=== PATIENT | female | born 1935 | race Caucasian/White ===

== ENCOUNTER 2016-09-12 19:41 | Inpatient (IN) | payer MEDICARE, MEDICAID ==
[2016-09-12] MEDS ORDERED: Sodium Chloride 0.9% 10 ML Syringe FLUSH PRN (20:24)
--- NOTE | 2016-09-12 20:39 | EDM.PDOC ---
ED HISTORY OF PRESENT ILLNESS - General Chief Complaint: Respiratory Problem Stated Complaint: COLD Time Seen by Provider: 09/12/16 20:25 Source: Reports: Patient, Family (Son) History Limitations: Reports: Respiratory distress - History of Present Illness INITIAL COMMENTS - FREE TEXT/NARRATIVE: Hypoxia: This is a 81-year-old female presents to emergency with her son and [id number], reports respiratory flu-like symptoms for the past 10 days. The past 2 days worsening oxygen saturations mid 80's. Today oxygen saturations in the 71 and low 70s with confusion. baseline oxygen sats 86 to 88 % on room air. She has been doing quite well for the past 2 years, last hospitalization 2 years ago, for respiratory illness . She does not have oxygen or nebulizers at home Timing/Duration: Reports: Week(s):, Getting worse Location, General: Reports: generalized Improves with: Reports: None Worsens with: Reports: None Context, General: Reports: Other (Respiratory illness x10 days) - Related Data Allergies/ADRs: Allergies Allergy/AdvReac Type Severity Reaction Status Date / Time No Known Allergies Allergy Verified 09/12/16 20:02 Home Meds: Home Meds Allopurinol 100 mg PO DAILY 06/06/13 [History] Aspirin [Christ Chewable Aspirin] 81 mg PO DAILY 06/06/13 [History] Clopidogrel Bisulfate [Clopidogrel] 75 mg PO DAILY 06/06/13 [History] Metoprolol Tartrate [Lopressor] 100 mg PO BID 06/06/13 [History] Triamcinolone Acetonide [Kenalog 0.1% Crm] 454 gm TOP ASDIRECTED PRN 06/06/13 [ History] atorvaSTATin Calcium [Atorvastatin Calcium] 10 mg PO BEDTIME 06/06/13 [History] glipiZIDE [Glipizide ER] 10 mg PO DAILY 06/06/13 [History] Famotidine 10 mg PO BEDTIME 01/15/15 [History] Insulin Glarg,Human.Rec.Analog [Lantus] 44 unit SUBCUT BEDTIME 01/15/15 [History ] Furosemide [Lasix] 40 mg PO DAILY #30 tablet 01/21/15 [Rx] Cholecalciferol (Vitamin D3) [Vitamin D3] 2,000 unit PO DAILY 09/12/16 [History] [place]-3 Fatty Acids [Fish Oil] 1,000 mg PO DAILY 09/12/16 [History] Past Medical History HEENT History: Reports: Impaired vision Cardiovascular History: Reports: High cholesterol, Hypertension Respiratory History: Reports: COPD Gastrointestinal History: Reports: Chronic constipation, GERD Genitourinary History: Reports: Acute renal failure 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: , Spontaneous Musculoskeletal History: Reports: Fracture Neurological History: Reports: CVA Endocrine/Metabolic History: Reports: Diabetes, type II Hematologic History: Reports: Blood transfusion(s) - Infectious Disease History Infectious Disease History: Reports: Chicken pox, Measles - Past Surgical History HEENT Surgical History: Reports: Cataract surgery Other Musculoskeletal Surgeries/Procedures:: fx hip with surgical repair Social & Family History - Tobacco Use Smoking Status *Q: Never Smoker Second Hand Smoke Exposure: No - Caffeine Use Caffeine Use: Reports: Soda - Alcohol Use Days Per Week of Alcohol Use: 0 - Recreational Drug Use Recreational Drug Use: No - Living Situation & Occupation Living situation: Reports: , with family Occupation: disabled (Lives with son Leonidas in [place], [place], 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.) ED ROS GENERAL - Review of Systems Review Of Systems: See Below Constitutional: Reports: fatigue, other (Low oxygen saturations for the past 2- 3 days worse today) HEENT: Reports: No symptoms Respiratory: Reports: shortness of breath, other (Low oxygen saturations) Cardiovascular: Reports: Dyspnea on exertion, Edema (Bilateral lower leg edema which is chronic) Endocrine: Reports: no symptoms GI/Abdominal: Reports: No symptoms : Reports: incontinence (Wears a diaper for incontinence of bowel and bladder) Musculoskeletal: Reports: no symptoms Skin: Reports: dryness (Bilateral lower legs) Neurological: Reports: tremors (Chronic), weakness, gait disturbance (Secondary to stroke x11-12 years ago. Walks with a walker.) Psychiatric: Reports: No symptoms Hematologic/Lymphatic: Reports: no symptoms Immunologic: Reports: no symptoms ED EXAM, GENERAL - Physical Exam Exam: See Below Exam Limited By: No limitations General Appearance: alert, WD/WN, mild distress, other (Appears to be frail and chronically ill. Very pale) Eye Exam: bilateral eye: PERRL Ears: normal external exam, other (Bilateral hearing aids) Nose: normal inspection, normal mucosa, no blood Throat/Mouth: Normal inspection, Normal lips, Normal teeth, Normal gums, Normal oropharynx, Normal voice, No airway compromise Head: atraumatic, normocephalic Neck: normal inspection, supple, non-tender, full range of motion Respiratory/Chest: no respiratory distress, decreased breath sounds, wheezing ( Upper lobe the bilateral) Cardiovascular: regular rate, rhythm Peripheral Pulses: 2+: radial (L), radial (R) GI/Abdominal: normal bowel sounds, soft, non tender, no organomegaly, no distention, no abnormal bruit, no mass (Female) Exam: Deferred Rectal (Female) Exam: Deferred Back Exam: normal inspection, full range of motion, other (Multiple large skin tags noted to back without signs of secondary infection) Extremities: pedal edema (Bilateral 2+), slow capillary refill (Due to the edema ) Neurological: alert, oriented, normal cognition Psychiatric: normal affect, normal mood Skin Exam: Warm, Dry, Intact, Normal color, No rash Lymphatic: no adenopathy Course - Vital Signs Last Recorded V/S: Last Vital Signs Temp 37.6 C 09/12/16 21:44 Pulse 68 09/12/16 21:44 Resp 20 09/12/16 21:44 BP 157/88 H 09/12/16 21:44 Pulse Ox 91 L 09/12/16 21:44 - Orders/Labs/Meds Orders: Active Orders 24 hr Category Date Time Status RT Aerosol Therapy [RC] ASDIRECTED Care 09/12/16 21:17 Active Chest 1V Frontal [CR] Urgent Exams 09/12/16 20:20 Taken CULTURE BLOOD [BC] Urgent Lab 09/12/16 20:25 Received CULTURE BLOOD [BC] Urgent Lab 09/12/16 20:35 Received UA W/MICROSCOPIC [URIN] Stat Lab 09/12/16 21:22 Uncollected Sodium Chloride 0.9% [Normal Saline] 1,000 ml Med 09/12/16 21:45 Active IV ASDIRECTED Sodium Chloride 0.9% [Saline Flush] Med 09/12/16 20:24 Active 10 ml FLUSH ASDIRECTED PRN Blood Culture x2 Reflex Set [OM.PC] Urgent Oth 09/12/16 20:20 Ordered Saline Lock Insert [OM.PC] Routine Oth 09/12/16 20:24 Ordered Medication Orders Sodium Chloride (Normal Saline) 1,000 mls @ 250 mls/hr IV ASDIRECTED SHLOMO Last Admin: 09/12/16 22:05 Dose: 250 mls/hr Sodium Chloride (Saline Flush) 10 ml FLUSH ASDIRECTED PRN PRN Reason: Keep Vein Open Last Admin: 09/12/16 21:26 Dose: 10 ml Labs: Laboratory Tests 09/12/16 09/12/16 09/12/16 Range/Units 20:25 20:25 20:25 WBC 10.6 (4.5-11.0) K/uL RBC 5.11 (3.30-5.50) M/uL Hgb 13.9 (12.0-15.0) g/dL Hct 47.5 (36.0-48.0) % MCV 93 (80-98) fL MCH 27 (27-31) pg MCHC 29 L (32-36) % Plt Count 220 (150-400) K/uL Neut % (Auto) 73 H (36-66) % Lymph % (Auto) 17 L (24-44) % [place] % (Auto) 8 H (2-6) % Eos % (Auto) 3 (2-4) % Baso % (Auto) 0 (0-1) % Puncture Site ABG pH (7.350-7.450) ABG pCO2 (35.0-42.0) mmHg ABG pO2 (75.0-100.0) mmHg ABG HCO3 (22.0-26.0) mmol/L ABG Total CO2 (21.0-25.0) mmol/L ABG O2 Saturation (95.0-98.0) % ABG O2 Content (15.0-23.0) %vol ABG Base Excess mm/L ABG Hemoglobin (12.0-16.0) g/dL ABG Oxyhemoglobin % ABG Carboxyhemoglobin (0.0-1.6) % ABG Methemoglobin % Sincere Test O2 Delivery Device Oxygen Flow Rate L Sodium 141 (140-148) mmol/L Potassium 4.1 (3.6-5.2) mmol/L Chloride 98 L (100-108) mmol/L Carbon Dioxide 40 H (21-32) mmol/L Anion Gap 7.1 (5.0-14.0) mmol/L BUN 46 H (7-18) mg/dL Creatinine 2.5 H D (0.6-1.0) mg/dL Est Cr Clr Drug Dosing 17.08 mL/min Estimated GFR (MDRD) 19 L (>60) Glucose 252 H (74-106) mg/dL Lactic Acid 1.8 (0.4-2.0) mmol/L Calcium 8.3 L (8.5-10.1) mg/dL Total Bilirubin 0.8 (0.2-1.0) mg/dL AST 11 L (15-37) U/L ALT 12 (12-78) U/L Alkaline Phosphatase 73 (46-116) U/L Aqk-[id number]-Lncuhymywnp Pept 364 (5-450) pg/mL Total Protein 7.3 (6.4-8.2) g/dL Albumin 2.9 L (3.4-5.0) g/dL Globulin 4.4 H (2.3-3.5) g/dL Albumin/Globulin Ratio 0.7 L (1.2-2.2) Amylase 58 (25-115) U/L Lipase 183 (73-393) U/L 09/12/16 Range/Units 20:42 WBC (4.5-11.0) K/uL RBC (3.30-5.50) M/uL Hgb (12.0-15.0) g/dL Hct (36.0-48.0) % MCV (80-98) fL MCH (27-31) pg MCHC (32-36) % Plt Count (150-400) K/uL Neut % (Auto) (36-66) % Lymph % (Auto) (24-44) % [place] % (Auto) (2-6) % Eos % (Auto) (2-4) % Baso % (Auto) (0-1) % Puncture Site Rt radial ABG pH 7.401 (7.350-7.450) ABG pCO2 62.7 H (35.0-42.0) mmHg ABG pO2 59.0 L (75.0-100.0) mmHg ABG HCO3 38.1 H (22.0-26.0) mmol/L ABG Total CO2 33.8 H (21.0-25.0) mmol/L ABG O2 Saturation 88.3 L (95.0-98.0) % ABG O2 Content 16.5 (15.0-23.0) %vol ABG Base Excess 11.0 mm/L ABG Hemoglobin 13.6 (12.0-16.0) g/dL ABG Oxyhemoglobin 86.2 % ABG Carboxyhemoglobin 1.7 H (0.0-1.6) % ABG Methemoglobin 0.7 % Sincere Test Pass O2 Delivery Device Nasal cannula Oxygen Flow Rate 3 L Sodium (140-148) mmol/L Potassium (3.6-5.2) mmol/L Chloride (100-108) mmol/L Carbon Dioxide (21-32) mmol/L Anion Gap (5.0-14.0) mmol/L BUN (7-18) mg/dL Creatinine (0.6-1.0) mg/dL Est Cr Clr Drug Dosing mL/min Estimated GFR (MDRD) (>60) Glucose (74-106) mg/dL Lactic Acid (0.4-2.0) mmol/L Calcium (8.5-10.1) mg/dL Total Bilirubin (0.2-1.0) mg/dL AST (15-37) U/L ALT (12-78) U/L Alkaline Phosphatase (46-116) U/L Mym-O-Gizuhcmriyw Pept (5-450) pg/mL Total Protein (6.4-8.2) g/dL Albumin (3.4-5.0) g/dL Globulin (2.3-3.5) g/dL Albumin/Globulin Ratio (1.2-2.2) Amylase (25-115) U/L Lipase (73-393) U/L Meds: Medications Generic Name Dose Route Start Last Admin Trade Name Freq PRN Reason Stop Dose Admin Sodium Chloride 1,000 mls @ 250 mls/hr 09/12/16 21:45 09/12/16 22:05 Normal Saline IV 250 mls/hr ASDIRECTED SHLOMO Administration Sodium Chloride 10 ml 09/12/16 20:24 09/12/16 21:26 Saline Flush FLUSH 10 ml ASDIRECTED PRN Administration Keep Vein Open Discontinued Medications Generic Name Dose Route Start Last Admin Trade Name Freq PRN Reason Stop Dose Admin Albuterol/Ipratropium 3 ml 09/12/16 21:17 09/12/16 21:32 Duoneb 3.0-0.5 Mg/3 Ml NEB 09/12/16 21:18 3 ml ONETIME ONE Administration Methylprednisolone Sodium Succinate 125 mg 09/12/16 22:00 09/12/16 22:06 Solu-Medrol IVPUSH 09/12/16 22:01 125 mg ONETIME ONE Administration - Re-Assessments/Exams Free Text/Narrative Re-Assessment/Exam: 09/12/16 22:40 While in emergency room; labs completed, blood cultures pending. Imaging: Chest x-ray shows cardiomegaly, no infiltrates noted on wet read, radiology report pending consult with internal medicine hospitalists -Given normal saline 1 L over 4 hours -Give Solu-Medrol 125 IV now and then reduce to 40 mg IV every 6 hours -Oxygen to keep sats 93% -Sliding scale coverage medium dose We'll plan to admit to inpatient unit for further care and evaluation Departure - Departure Time of Disposition: 22:45 Disposition: Admitted As Inpatient 68 Condition: good Clinical Impression: COPD exacerbation, Hypoxemia, Diabetes mellitus type 2 in obese, History of stroke - My Orders Last 24 Hours: My Active Orders 09/12/16 20:20 Chest 1V Frontal [CR] Urgent Blood Culture x2 Reflex Set [OM.PC] Urgent 09/12/16 20:24 Sodium Chloride 0.9% [Saline Flush] 10 ml FLUSH ASDIRECTED PRN Saline Lock Insert [OM.PC] Routine 09/12/16 20:25 CULTURE BLOOD [BC] Urgent 09/12/16 20:35 CULTURE BLOOD [BC] Urgent 09/12/16 21:17 RT Aerosol Therapy [RC] ASDIRECTED 09/12/16 21:22 UA W/MICROSCOPIC [URIN] Stat 09/12/16 21:45 Sodium Chloride 0.9% [Normal Saline] 1,000 ml IV ASDIRECTED - Assessment/Plan Last 24 Hours: My Active Orders 09/12/16 20:20 Chest 1V Frontal [CR] Urgent Blood Culture x2 Reflex Set [OM.PC] Urgent 09/12/16 20:24 Sodium Chloride 0.9% [Saline Flush] 10 ml FLUSH ASDIRECTED PRN Saline Lock Insert [OM.PC] Routine 09/12/16 20:25 CULTURE BLOOD [BC] Urgent 09/12/16 20:35 CULTURE BLOOD [BC] Urgent 09/12/16 21:17 RT Aerosol Therapy [RC] ASDIRECTED 09/12/16 21:22 UA W/MICROSCOPIC [URIN] Stat 09/12/16 21:45 Sodium Chloride 0.9% [Normal Saline] 1,000 ml IV ASDIRECTED
[2016-09-12] MEDS ORDERED: Albuterol/Ipratropium 3.0-0.5 MG/3 ML Neb Soln NEB ONE (21:17)
[2016-09-12] MEDS ORDERED: Sodium Chloride 0.9% 1,000 ML IV SCH (21:45)
[2016-09-12] MEDS ORDERED: methylPREDNISolone Sodium Succinate 125 MG/2 ML SDV IVPUSH ONE (22:00)
[2016-09-12] MEDS ORDERED: Docusate Sodium 100 MG Cap PO PRN (22:57)
[2016-09-12] MEDS ORDERED: Ondansetron 4 MG Tab.DIS PO PRN (22:57)
[2016-09-12] MEDS ORDERED: Acetaminophen 325 MG Tab PO PRN (22:57)
[2016-09-12] MEDS ORDERED: Albuterol 0.083% 2.5 MG/3 ML Neb Soln NEB PRN (22:57)
[2016-09-12] MEDS ORDERED: LORazepam 2 MG/ML MDV IV PRN (22:57)
[2016-09-12] MEDS ORDERED: Albuterol/Ipratropium 3.0-0.5 MG/3 ML Neb Soln NEB SCH (22:57)
[2016-09-12] MEDS ORDERED: oxyCODONE 5 MG Tab PO PRN (22:57)
[2016-09-12] MEDS ORDERED: Zolpidem 5 MG Tab PO PRN (22:57)
[2016-09-12] MEDS ORDERED: Bisacodyl 5 MG Tab PO PRN (22:57)
[2016-09-12] MEDS ORDERED: Morphine 2 MG/ML Syringe IVPUSH PRN (22:57)
--- NOTE | 2016-09-12 23:05 | PCM.HP ---
H&P History of Present Illness - General Date of Service: 09/12/16 Admit Problem/Dx: Admission Diagnosis/Problem Admission Diagnosis/Problem COPD, Moderate chronic obstructive pulmonary disease Source of Information: Patient, Family (Son Leonidas) History Limitations: Reports: No limitations - History of Present Illness Initial Comments - Free Text/Narative: - History of Present Illness INITIAL COMMENTS - FREE TEXT/NARRATIVE: Hypoxia: This is a 81-year-old female presents to emergency with her son and [id number], reports respiratory flu-like symptoms for the past 10 days. The past 2 days worsening oxygen saturations mid 80's. Today oxygen saturations in the 71 and low 70s with confusion. baseline oxygen sats 86 to 88 % on room air. She has been doing quite well for the past 2 years, last hospitalization 2 years ago, for respiratory illness . She does not have oxygen or nebulizers at home 09/12/16 22:40 While in emergency room; labs completed, blood cultures pending. Imaging: Chest x-ray shows cardiomegaly, no infiltrates noted on wet read, radiology report pending consult with internal medicine hospitalists -Given normal saline 1 L over 4 hours -Give Solu-Medrol 125 IV now and then reduce to 40 mg IV every 6 hours -Oxygen to keep sats 93% -Sliding scale coverage medium dose We'll plan to admit to inpatient unit for further care and evaluation Onset of Symptoms: Reports: gradual Duration of Symptoms: Reports: Day(s): (ten), Getting worse Location: Reports: chest Quality: Reports: Other (shortness of breath,decreased oxygen sat.) Severity: severe Improves with: Reports: None Worsens with: Reports: None Context: Reports: sick contact (flu like illness.) Associated Symptoms: Reports: cough, fever/chills, shortness of breath Denies pain Pain Score (Numeric/FACES): 0 - Related Data Allergies/Adverse Reactions: Allergies Allergy/AdvReac Type Severity Reaction Status Date / Time No Known Allergies Allergy Verified 09/12/16 20:02 Home Medications: Home Meds Allopurinol 100 mg PO DAILY 06/06/13 [History] Aspirin [Christ Chewable Aspirin] 81 mg PO DAILY 06/06/13 [History] Clopidogrel Bisulfate [Clopidogrel] 75 mg PO DAILY 06/06/13 [History] Metoprolol Tartrate [Lopressor] 100 mg PO BID 06/06/13 [History] Triamcinolone Acetonide [Kenalog 0.1% Crm] 454 gm TOP ASDIRECTED PRN 06/06/13 [ History] atorvaSTATin Calcium [Atorvastatin Calcium] 10 mg PO BEDTIME 06/06/13 [History] glipiZIDE [Glipizide ER] 10 mg PO DAILY 06/06/13 [History] Famotidine 10 mg PO BEDTIME 01/15/15 [History] Insulin Glarg,Human.Rec.Analog [Lantus] 44 unit SUBCUT BEDTIME 01/15/15 [History ] Furosemide [Lasix] 40 mg PO DAILY #30 tablet 01/21/15 [Rx] Cholecalciferol (Vitamin D3) [Vitamin D3] 2,000 unit PO DAILY 09/12/16 [History] [place]-3 Fatty Acids [Fish Oil] 1,000 mg PO DAILY 09/12/16 [History] Past Medical History HEENT History: Reports: Impaired vision Cardiovascular History: Reports: High cholesterol, Hypertension Respiratory History: Reports: COPD Gastrointestinal History: Reports: Chronic constipation, GERD Genitourinary History: Reports: Acute renal failure [employer]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 History: Reports: , Spontaneous Musculoskeletal History: Reports: Fracture Neurological History: Reports: CVA Endocrine/Metabolic History: Reports: Diabetes, type II Hematologic History: Reports: Blood transfusion(s) - Infectious Disease History Infectious Disease History: Reports: Chicken pox, Measles - Past Surgical History HEENT Surgical History: Reports: Cataract surgery Other Musculoskeletal Surgeries/Procedures:: fx hip with surgical repair Social & Family History - Tobacco Use Smoking Status *Q: Never Smoker Second Hand Smoke Exposure: No - Caffeine Use Caffeine Use: Reports: Soda - Alcohol Use Days Per Week of Alcohol Use: 0 - Recreational Drug Use Recreational Drug Use: No - Living Situation & Occupation Living situation: Reports: , with family Occupation: disabled (Lives with son Leonidas in [place], [place], 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.) H&P Review of Systems - Review of Systems: Review Of Systems: See Below General: Reports: fever, chills, other (shortness of breath) HEENT: Reports: hearing changes (bilateral hearing aide) Pulmonary: Reports: shortness of breath, cough Cardiovascular: Reports: edema (bilateral lower leg edema, chronic) Gastrointestinal: Reports: Stool incontinence Genitourinary: Reports: incontinence Musculoskeletal: Reports: no symptoms Skin: Reports: pallor, dryness Psychiatric: Reports: no symptoms Neurological: Reports: no symptoms, pre-existing deficit (CVA 11years ago), gait disturbance (walks with walker) Hematologic/Lymphatic: Reports: no symptoms Immunologic: Reports: no symptoms Exam - Exam Exam: See Below - Vital Signs Vital Signs: Last Vital Signs Temp 37.6 C 09/12/16 21:44 Pulse 68 09/12/16 21:44 Resp 20 09/12/16 21:44 BP 157/88 H 09/12/16 21:44 Pulse Ox 91 L 09/12/16 21:44 Weight: 122.47 kg - Exam Quality Assessment: supplemental oxygen General: alert, oriented, cooperative, mild distress HEENT: PERRLA, Conjunctiva clear, EACs clear, EOMI, Hearing intact (hearing aide in place), Mucosa moist & pink, Nares patent, Normal nasal septum, Posterior pharynx clear, Pupils equal, Pupils reactive Neck: supple, trachea midline Lungs: Decreased breath sounds, Wheezing Cardiovascular: regular rate, regular rhythm Abdomen: normal bowel sounds, soft (Female) Exam: Deferred Rectal (Female) Exam: Deferred Back Exam: normal inspection, full range of motion, other (large skin tag noted to lower back) Extremities: edema (2+ pitting edema) Peripheral Pulses: 2+: radial (R), femoral (L) Skin: warm, dry, intact Neurological: reflexes equal bilateral, strength equal bilateral Neuro Extensive - Mental Status: alert, normal mood/affect, normal cognition Psychiatric: alert, normal affect, normal mood - Patient Data Result Diagrams: 09/12/16 20:25 09/12/16 20:25 *Q Meaningful Use (ADM) - VTE *Q VTE Criteria *Q: - Stroke *Q Stroke Criteria *Q: - AMI *Q AMI Criteria *Q: - Problem List (1) COPD exacerbation SNOMED Code(s): 976320547, 929163565 ICD Code: J44.1 - CHRONIC OBSTRUCTIVE PULMONARY DISEASE W (ACUTE) EXACERBATION Status: Acute Priority: High Current Visit: Yes (2) Diabetes mellitus type 2 in obese SNOMED Code(s): 45469814 ICD Code: E11.9 - TYPE 2 DIABETES MELLITUS WITHOUT COMPLICATIONS; E66.9 - OBESITY, UNSPECIFIED Status: Acute Priority: High Current Visit: Yes (3) History of stroke SNOMED Code(s): 716194376 ICD Code: Z86.73 - PRSNL HX OF TIA (TIA), AND CEREB INFRC W/O RESID DEFICITS Status: Acute Priority: Medium Current Visit: Yes (4) Hypoxemia SNOMED Code(s): 292346619 ICD Code: R09.02 - HYPOXEMIA Status: Acute Priority: High Current Visit : Yes Problem List Initiated/Reviewed/Updated: Yes Orders Last 24hrs: Active Orders 24 hr Category Date Time Status Patient Status [ADT] ASDIRECTED ADT 09/12/16 22:57 Ordered Cardiac Monitoring [RC] .As Directed Care 09/12/16 22:57 Active Diabetes Education [RC] Click To Edit Care 09/12/16 22:57 Active Intake and Output [RC] QSHIFT Care 09/12/16 22:57 Active May Shower [RC] ASDIRECTED Care 09/12/16 22:57 Active Oxygen Therapy [RC] PRN Care 09/12/16 22:57 Active Pulse Oximetry [RC] CONTINUOUS Care 09/12/16 22:57 Active RT Aerosol Therapy [RC] ASDIRECTED Care 09/12/16 22:57 Active Up With Assistance [RC] ASDIRECTED Care 09/12/16 22:57 Active VTE/DVT Education [RC] Per Unit Routine Care 09/12/16 22:57 Active Vital Signs [RC] Q4H Care 09/12/16 22:57 Active Consult to Spiritual Care [CONS] Routine Cons 09/12/16 22:57 Active OT Evaluation and Treatment [CONS] Routine Cons 09/12/16 22:57 Active PT Evaluation and Treatment [CONS] Routine Cons 09/12/16 22:57 Active Consistent Carbohydrate Diet [DIET] Diet 09/12/16 Breakfast Active BASIC METABOLIC PANEL,BMP [CHEM] AM Lab 09/13/16 05:11 Ordered CBC WITH AUTO DIFF [HEME] AM Lab 09/13/16 05:11 Ordered GLUCOSE POC LAB TO COLLECT [POC] QIDACANDBED Lab 09/13/16 07:30 Ordered Acetaminophen [Tylenol] Med 09/12/16 22:57 Ordered 650 mg PO Q4H PRN Albuterol [Proventil Neb Soln] Med 09/12/16 22:57 Ordered 2.5 mg NEB Q4H PRN Albuterol/Ipratropium [DuoNeb 3.0-0.5 MG/3 ML] Med 09/12/16 22:57 Ordered 3 ml NEB QID Allopurinol [Zyloprim] Med 09/13/16 09:00 Ordered 100 mg PO DAILY Aspirin Med 09/13/16 09:00 Ordered 81 mg PO DAILY Bisacodyl [Dulcolax] Med 09/12/16 22:57 Ordered 5 mg PO DAILY PRN Clopidogrel [Plavix] Med 09/13/16 09:00 Ordered 75 mg PO DAILY Docusate Sodium [Colace] Med 09/12/16 22:57 Ordered 100 mg PO BID PRN Furosemide [Lasix] Med 09/13/16 09:00 Ordered 40 mg PO DAILY Insulin Aspart [NovoLOG] Med 09/12/16 22:57 Ordered See Protocol SUBCUT ASDIRECTED Insulin Glarg,Human.Rec.Analog [Lantus] Med 09/13/16 21:00 Ordered 44 unit SUBCUT BEDTIME LORazepam [Ativan] Med 09/12/16 22:57 Ordered 0.5 mg IV Q6H PRN Metoprolol Tartrate [Lopressor] Med 09/13/16 09:00 Ordered 100 mg PO BID Morphine Med 09/12/16 22:57 Ordered 2 mg IVPUSH Q2H PRN Ondansetron [Zofran ODT] Med 09/12/16 22:57 Ordered 4 mg PO Q6H PRN Sodium Chloride 0.9% [Normal Saline] 1,000 ml Med 09/12/16 22:57 Ordered IV ASDIRECTED Zolpidem [Ambien] Med 09/12/16 22:57 Ordered 5 mg PO BEDTIME PRN atorvaSTATin [Lipitor] Med 09/13/16 21:00 Ordered 10 mg PO BEDTIME glipiZIDE [Glipizide ER] Med 09/13/16 09:00 Ordered 10 mg PO DAILY methylPREDNISolone Sod Succ [Solu-MEDROL] Med 09/13/16 03:10 Ordered 40 mg IVPUSH Q6H oxyCODONE Med 09/12/16 22:57 Ordered 5 mg PO Q4H PRN Resuscitation Status Routine Resus Stat 09/12/16 21:50 Ordered Medication Orders Acetaminophen (Tylenol) 650 mg PO Q4H PRN PRN Reason: Pain (Mild 1-3)/fever Albuterol (Proventil Neb Soln) 2.5 mg NEB Q4H PRN PRN Reason: Shortness Of Breath/wheezing Albuterol/Ipratropium (Duoneb 3.0-0.5 Mg/3 Ml) 3 ml NEB QID [facility] Allopurinol (Zyloprim) 100 mg PO DAILY [facility] Aspirin (Aspirin) 81 mg PO DAILY [facility] Atorvastatin Calcium (Lipitor) 10 mg PO BEDTIME [facility] Bisacodyl (Dulcolax) 5 mg PO DAILY PRN PRN Reason: Constipation Clopidogrel Bisulfate (Plavix) 75 mg PO DAILY [facility] Docusate Sodium (Colace) 100 mg PO BID PRN PRN Reason: Constipation Furosemide (Lasix) 40 mg PO DAILY [facility] Sodium Chloride (Normal Saline) 1,000 mls @ 250 mls/hr IV ASDIRECTED [facility] Last Admin: 09/12/16 22:05 Dose: 250 mls/hr Sodium Chloride (Normal Saline) 1,000 mls @ 125 mls/hr IV ASDIRECTED [facility] Insulin Aspart (Novolog) 0 unit SUBCUT ASDIRECTED [facility] PRN Reason: Protocol Lorazepam (Ativan) 0.5 mg IV Q6H PRN PRN Reason: Nausea/Vomiting Methylprednisolone Sodium Succinate (Solu-Medrol) 40 mg IVPUSH Q6H [facility] Morphine Sulfate (Morphine) 2 mg IVPUSH Q2H PRN PRN Reason: Pain (severe 7-10) Non-Formulary Medication (Insulin Glarg,Human.Rec.Analog [Lantus]) 44 unit SUBCUT BEDTIME [facility] Non-Formulary Medication (Metoprolol Tartrate [Lopressor]) 100 mg PO BID [facility] Non-Formulary Medication (Glipizide [Glipizide Er]) 10 mg PO DAILY [facility] Ondansetron HCl (Zofran Odt) 4 mg PO Q6H PRN PRN Reason: Nausea able to take PO Oxycodone HCl (Oxycodone) 5 mg PO Q4H PRN PRN Reason: Pain (moderate 4-6) Sodium Chloride (Saline Flush) 10 ml FLUSH ASDIRECTED PRN PRN Reason: Keep Vein Open Last Admin: 09/12/16 21:26 Dose: 10 ml Zolpidem Tartrate (Ambien) 5 mg PO BEDTIME PRN PRN Reason: Sleep Assessment/Plan Comment:: ASSESSMENT / PLAN -Hypoxia: This is a 81-year-old female presents to emergency with her son and [id number], reports respiratory flu-like symptoms for the past 10 days. The past 2 days worsening oxygen saturations mid 80's. Today oxygen saturations in the 71 and low 70s with confusion. baseline oxygen sats 86 to 88 % on room air. She has been doing quite well for the past 2 years, last hospitalization 2 years ago, for respiratory illness . She does not have oxygen or nebulizers at home 09/12/16 22:40 While in emergency room; labs completed, blood cultures pending. Imaging: Chest x-ray shows cardiomegaly, no infiltrates noted on wet read, radiology report pending consult with internal medicine hospitalists -Given normal saline 1 L over 4 hours, then at a rate of 125ml/hr -Give Solu-Medrol 125 IV now and then reduce to 40 mg IV every 6 hours -Oxygen to keep sats 93% -Sliding scale coverage medium dose We'll plan to admit to inpatient unit for further care and evaluation Plan -Admit to ICU Med over flow for further monitoring COPD excerbation with Hypoxia -Solumedrol 40 mg IV every 6 hours -Duo nebs as schedule -albuterol nebs prn -Telemetry -Oxygen per nasal cannula -IV fluids for rehydration NS at 125 mL per hour -Advise to notify nurses of any chest pain or other symptoms Diabetes type 2 -Lantus 44 units subcut at hs -Sliding scale with medium coverage -blood glucose before meals and hs -And a.m. labs: CBC, BMP history of stroke -ambulate with walker -referral to OT and PT -fall risk Maintenance issues -Orders home meds: -Nutrition: diabetic diet -Alexander catheter not indicated at this time -DVT: SCD -GI prophalaxis; Protonix 40 mg daily CODE STATUS: DNR/DNI Admission status: Admit to ICU Med overflow Admission justification. This patient will be admitted for inpatient services and is medically appropriate meeting medical necessity for inpatient admission as outlined in my documentation. I reasonably expect the patient will require inpatient services that span. Time over 2 midnights. I reasonably expect this patient to be discharged or transferred within 96 hours after admission to the critical access hospital. Disposition: home with sonLeonidas Primary care provider: Dr. Marin
[2016-09-13] MEDS: Sodium Chloride 0.9% 1,000 ML IV SCH ×2 (02:16→10:11)
[2016-09-13] MEDS: methylPREDNISolone Sodium Succinate 40 MG/1 ML SDV IVPUSH SCH ×4 (04:58→21:26)
[2016-09-13] MEDS ORDERED: methylPREDNISolone Sodium Succinate 40 MG/1 ML SDV ONE (04:58)
[2016-09-13] MEDS: Albuterol/Ipratropium 3.0-0.5 MG/3 ML Neb Soln NEB SCH ×4 (07:08→21:27)
[2016-09-13] MEDS: Insulin Aspart 100 Units/ML 3 ML Pen SUBCUT SCH ×4 (08:00→21:17)
[2016-09-13] MEDS: Allopurinol 100 MG Tab PO SCH (08:36)
[2016-09-13] MEDS: glipiZIDE 5 MG Tab.ER PO SCH (08:36)
[2016-09-13] MEDS: Aspirin 81 MG Tab.Chew PO SCH (08:36)
[2016-09-13] MEDS: Clopidogrel 75 MG Tab PO SCH (08:36)
[2016-09-13] MEDS: Metoprolol Tartrate 50 MG Tab PO SCH ×2 (08:36→21:26)
[2016-09-13] MEDS ORDERED: Furosemide 40 MG Tab PO SCH (09:00)
--- NOTE | 2016-09-13 09:02 | CR ---
Portable chest Comparison: 17 March 2016. There is increase in cardiac enlargement. There is pulmonary vascular engorgement. Basilar interstit ial infiltrates are demonstrated. There are no effusions. Impression: 1. CHF with mild interstitial edema.
--- NOTE | 2016-09-13 15:28 | PCM.PN ---
- General Info Date of Service: 09/13/16 Functional Status: Reports: pain controlled, urinating - Review of Systems General: Reports: weakness. Denies: fever, chills Pulmonary: Reports: shortness of breath, cough, wheezing. Denies: pleuritic chest pain, sputum, hemoptysis Cardiovascular: Reports: dyspnea on exertion, edema. Denies: chest pain, palpitations, orthopnea, PND, lightheadedness Gastrointestinal: Reports: No symptoms Systems Review Comment:: Ms. Moreno is a 81-year-old woman who was admitted last night because of increased shortness of breath, weakness, and confusion. She has an extensive medical history including COPD, congestive heart failure, coronary artery disease, chronic kidney disease, and type 2 diabetes mellitus. Creatinine was elevated from baseline at the time of admission and she did receive some IV fluids her the night. Renal function has improved modestly with hydration. There has been no evidence of underlying infectious process and she has not yet been started on antibiotic therapy. - Patient Data Vitals - most recent: Last Vital Signs Temp 97.2 F 09/13/16 13:00 Pulse 68 09/13/16 14:32 Resp 24 H 09/13/16 13:00 BP 118/66 09/13/16 13:00 Pulse Ox 91 L 09/13/16 13:00 Weight - most recent: 270 lb 0.002 oz I&O - last 24 hours: Intake & Output 09/13/16 09/13/16 09/13/16 06:59 14:59 22:59 Intake Total 1460 1448 Balance 1460 1448 Lab Results last 24 hrs: Laboratory Results - last 24 hr 09/13/16 09/13/16 Range/Units 04:40 04:40 WBC 9.7 (4.5-11.0) K/uL RBC 5.07 (3.30-5.50) M/uL Hgb 14.1 (12.0-15.0) g/dL Hct 47.0 (36.0-48.0) % MCV 93 (80-98) fL MCH 28 (27-31) pg MCHC 30 L (32-36) % Plt Count 180 (150-400) K/uL Neut % (Auto) 93 H (36-66) % Lymph % (Auto) 6 L (24-44) % [place] % (Auto) 1 L (2-6) % Eos % (Auto) 0 L (2-4) % Baso % (Auto) 0 (0-1) % Sodium 143 (140-148) mmol/L Potassium 4.6 (3.6-5.2) mmol/L Chloride 101 (100-108) mmol/L Carbon Dioxide 38 H (21-32) mmol/L Anion Gap 8.6 (5.0-14.0) mmol/L BUN 43 H (7-18) mg/dL Creatinine 2.2 H (0.6-1.0) mg/dL Est Cr Clr Drug Dosing 19.41 mL/min Estimated GFR (MDRD) 22 L (>60) Glucose 245 H (74-106) mg/dL Calcium 8.0 L (8.5-10.1) mg/dL Med Orders - Current: Current Medications Acetaminophen (Tylenol) 650 mg PO Q4H PRN PRN Reason: Pain (Mild 1-3)/fever Albuterol (Proventil Neb Soln) 2.5 mg NEB Q4H PRN PRN Reason: Shortness Of Breath/wheezing Albuterol/Ipratropium (Duoneb 3.0-0.5 Mg/3 Ml) 3 ml NEB QIDRT [facility] Last Admin: 09/13/16 14:38 Dose: 3 ml Allopurinol (Zyloprim) 100 mg PO DAILY [facility] Last Admin: 09/13/16 08:36 Dose: 100 mg Aspirin (Aspirin) 81 mg PO DAILY [facility] Last Admin: 09/13/16 08:36 Dose: 81 mg Atorvastatin Calcium (Lipitor) 10 mg PO BEDTIME [facility] Bisacodyl (Dulcolax) 5 mg PO DAILY PRN PRN Reason: Constipation Clopidogrel Bisulfate (Plavix) 75 mg PO DAILY [facility] Last Admin: 09/13/16 08:36 Dose: 75 mg Docusate Sodium (Colace) 100 mg PO BID PRN PRN Reason: Constipation Furosemide (Lasix) 40 mg PO DAILY [facility] Last Admin: 09/13/16 08:36 Dose: 40 mg Furosemide (Lasix) 80 mg IVPUSH ONETIME ONE Stop: 09/13/16 15:25 Glipizide (Glucotrol Xl) 10 mg PO DAILY [facility] Last Admin: 09/13/16 08:36 Dose: 10 mg Insulin Aspart (Novolog) 0 unit SUBCUT ASDIRECTED [facility] PRN Reason: Protocol Last Admin: 09/13/16 11:36 Dose: 8 units Insulin Detemir (Levemir) 44 unit SUBCUT BEDTIME [facility] Lorazepam (Ativan) 0.5 mg IV Q6H PRN PRN Reason: Nausea/Vomiting Methylprednisolone Sodium Succinate (Solu-Medrol) 40 mg IVPUSH Q6H [facility] Last Admin: 09/13/16 10:12 Dose: 40 mg Metoprolol Tartrate (Lopressor) 100 mg PO BID [facility] Last Admin: 09/13/16 08:36 Dose: 100 mg Morphine Sulfate (Morphine) 2 mg IVPUSH Q2H PRN PRN Reason: Pain (severe 7-10) Ondansetron HCl (Zofran Odt) 4 mg PO Q6H PRN PRN Reason: Nausea able to take PO Oxycodone HCl (Oxycodone) 5 mg PO Q4H PRN PRN Reason: Pain (moderate 4-6) Last Admin: 09/13/16 05:36 Dose: 5 mg Sodium Chloride (Saline Flush) 10 ml FLUSH ASDIRECTED PRN PRN Reason: Keep Vein Open Last Admin: 09/12/16 21:26 Dose: 10 ml Zolpidem Tartrate (Ambien) 5 mg PO BEDTIME PRN PRN Reason: Sleep Discontinued Medications Albuterol/Ipratropium (Duoneb 3.0-0.5 Mg/3 Ml) 3 ml NEB ONETIME ONE Stop: 09/12/16 21:18 Last Admin: 09/12/16 21:32 Dose: 3 ml Albuterol/Ipratropium (Duoneb 3.0-0.5 Mg/3 Ml) 3 ml NEB QID [facility] Last Admin: 09/13/16 00:02 Dose: 3 ml Sodium Chloride (Normal Saline) 1,000 mls @ 250 mls/hr IV ASDIRECTED [facility] Last Admin: 09/12/16 22:05 Dose: 250 mls/hr Sodium Chloride (Normal Saline) 1,000 mls @ 125 mls/hr IV ASDIRECTED [facility] Last Admin: 09/13/16 10:11 Dose: 125 mls/hr Insulin Detemir (Levemir) 44 unit SUBCUT BEDTIME [facility] Methylprednisolone Sodium Succinate (Solu-Medrol) 125 mg IVPUSH ONETIME ONE Stop: 09/12/16 22:01 Last Admin: 09/12/16 22:06 Dose: 125 mg Methylprednisolone Sodium Succinate (Solu-Medrol) Confirm Administered Dose 40 mg .ROUTE .STK-MED ONE Stop: 09/13/16 04:59 Last Admin: 09/13/16 05:07 Dose: Not Given - Exam Quality Assessment: DVT prophylaxis General: alert, oriented, cooperative, mild distress Lungs: Decreased breath sounds, Rales, Wheezing. No: Rhonchi, Rub, Stridor Cardiovascular: regular rate, regular rhythm, no murmurs Abdomen: bowel sounds present, soft, no tenderness, no distension Extremities: edema Skin: warm, dry, intact - Problem List Review Problem List Initiated/Reviewed/Updated: Yes - My Orders Last 24 Hours: My Active Orders 09/13/16 11:34 Convert IV to Saline Lock [OM.PC] Routine 09/13/16 15:24 Furosemide [Lasix] 80 mg IVPUSH ONETIME ONE 09/14/16 05:00 BASIC METABOLIC PANEL,BMP [CHEM] Timed - Plan Plan:: ASSESSMENT / PLAN HYPOXIC RESPIRATORY FAILURE, ACUTE ON CHRONIC-underlying COPD as well as probable component of congestive heart failure. CONGESTIVE HEART FAILURE WITH FLUID OVERLOAD -Echocardiogram on -Saline lock IV -Furosemide 80 mg IV now COPD excerbation with Hypoxia -Solumedrol 40 mg IV every 6 hours -Duo nebs as schedule -albuterol nebs prn -Telemetry -Oxygen per nasal cannula Diabetes type 2 -Lantus 44 units subcut at hs -Sliding scale with medium coverage -blood glucose before meals and hs -And a.m. labs: CBC, BMP history of stroke -ambulate with walker -referral to OT and PT -fall risk Maintenance issues -Orders home meds: -Nutrition: diabetic diet -Alexander catheter not indicated at this time -DVT: SCD -GI prophalaxis; Protonix 40 mg daily CODE STATUS: DNR/DNI Admission status: Admit to ICU Med overflow Admission justification. This patient will be admitted for inpatient services and is medically appropriate meeting medical necessity for inpatient admission as outlined in my documentation. I reasonably expect the patient will require inpatient services that span. Time over 2 midnights. I reasonably expect this patient to be discharged or transferred within 96 hours after admission to the critical access hospital. Disposition: home with sonLeonidas Primary care provider: Dr. Marin
[2016-09-13] MEDS ORDERED: Furosemide 40 MG/4 ML VIAL IVPUSH ONE (15:45)
[2016-09-13] MEDS ORDERED: Insulin Detemir 100 Units/ML 3 ML Pen SUBCUT SCH ×2 (21:00)
[2016-09-13] MEDS: atorvaSTATin 10 MG Tab PO SCH (21:25)
[2016-09-14] MEDS: methylPREDNISolone Sodium Succinate 40 MG/1 ML SDV IVPUSH SCH ×2 (04:36→17:21)
[2016-09-14] MEDS: Albuterol/Ipratropium 3.0-0.5 MG/3 ML Neb Soln NEB SCH ×4 (07:07→21:46)
--- NOTE | 2016-09-14 08:07 | PCM.PN ---
- General Info Date of Service: 09/14/16 Functional Status: Reports: pain controlled, ambulating, urinating - Review of Systems General: Reports: weakness. Denies: fever, chills Pulmonary: Reports: shortness of breath. Denies: pleuritic chest pain, cough, sputum, hemoptysis, wheezing Cardiovascular: Reports: dyspnea on exertion, edema. Denies: chest pain, palpitations, orthopnea, PND Gastrointestinal: Reports: No symptoms Systems Review Comment:: This patient has done well over the past 24 hours, less dyspnea with better oxygenation. Overall strength seems to be improved and she has been able to walk short distances and transfer better than she had been able to yesterday. Vital signs have been stable with good oxygenation. There has been no significant temperature elevation. - Patient Data Vitals - most recent: Last Vital Signs Temp 97.0 F 09/14/16 04:42 Pulse 72 09/14/16 07:07 Resp 14 09/14/16 04:42 BP 110/41 L 09/14/16 04:42 Pulse Ox 94 L 09/14/16 04:42 Weight - most recent: 270 lb 0.002 oz I&O - last 24 hours: Intake & Output 09/13/16 09/14/16 09/14/16 22:59 06:59 14:59 Intake Total 630 Output Total 1150 Balance -520 Lab Results last 24 hrs: Laboratory Results - last 24 hr 09/13/16 09/14/16 Range/Units 17:20 05:53 Sodium 143 (140-148) mmol/L Potassium 4.6 (3.6-5.2) mmol/L Chloride 103 (100-108) mmol/L Carbon Dioxide 38 H (21-32) mmol/L Anion Gap 6.6 (5.0-14.0) mmol/L BUN 51 H (7-18) mg/dL Creatinine 2.4 H (0.6-1.0) mg/dL Est Cr Clr Drug Dosing 17.89 mL/min Estimated GFR (MDRD) 19 L (>60) Glucose 266 H (74-106) mg/dL Calcium 7.5 L (8.5-10.1) mg/dL Urine Color Yellow Urine Appearance Clear Urine pH 6.0 (4.5-8.0) Ur Specific [place] 1.015 (1.008-1.030) Urine Protein Negative (NEGATIVE) mg/dL Urine Glucose (UA) Normal (NEGATIVE) mg/dL Urine Ketones Negative (NEGATIVE) mg/dL Urine Occult Blood Negative (NEGATIVE) Urine Nitrite Negative (NEGATIVE) Urine Bilirubin Negative (NEGATIVE) Urine Urobilinogen Normal (NORMAL) mg/dL Ur Leukocyte Esterase Negative (NEGATIVE) Urine RBC 0-5 (0-5) Urine WBC 0-5 (0-5) Ur Epithelial Cells Rare Amorphous Sediment Not seen Urine Bacteria Few Urine Mucus Not seen Med Orders - Current: Current Medications Acetaminophen (Tylenol) 650 mg PO Q4H PRN PRN Reason: Pain (Mild 1-3)/fever Albuterol (Proventil Neb Soln) 2.5 mg NEB Q4H PRN PRN Reason: Shortness Of Breath/wheezing Albuterol/Ipratropium (Duoneb 3.0-0.5 Mg/3 Ml) 3 ml NEB QIDRT [facility] Last Admin: 09/14/16 07:07 Dose: 3 ml Allopurinol (Zyloprim) 100 mg PO DAILY [facility] Last Admin: 09/13/16 08:36 Dose: 100 mg Aspirin (Aspirin) 81 mg PO DAILY [facility] Last Admin: 09/13/16 08:36 Dose: 81 mg Atorvastatin Calcium (Lipitor) 10 mg PO BEDTIME [facility] Last Admin: 09/13/16 21:25 Dose: 10 mg Bisacodyl (Dulcolax) 5 mg PO DAILY PRN PRN Reason: Constipation Clopidogrel Bisulfate (Plavix) 75 mg PO DAILY [facility] Last Admin: 09/13/16 08:36 Dose: 75 mg Docusate Sodium (Colace) 100 mg PO BID PRN PRN Reason: Constipation Furosemide (Lasix) 80 mg IVPUSH ONETIME ONE Stop: 09/14/16 08:03 Glipizide (Glucotrol Xl) 10 mg PO DAILY [facility] Last Admin: 09/13/16 08:36 Dose: 10 mg Insulin Aspart (Novolog) 0 unit SUBCUT ASDIRECTED [facility] PRN Reason: Protocol Last Admin: 09/13/16 21:17 Dose: 10 units Insulin Detemir (Levemir) 44 unit SUBCUT BEDTIME [facility] Last Admin: 09/13/16 21:16 Dose: 44 units Lorazepam (Ativan) 0.5 mg IV Q6H PRN PRN Reason: Nausea/Vomiting Methylprednisolone Sodium Succinate (Solu-Medrol) 40 mg IVPUSH Q12H [facility] Metoprolol Tartrate (Lopressor) 100 mg PO BID [facility] Last Admin: 09/13/16 21:26 Dose: 100 mg Morphine Sulfate (Morphine) 2 mg IVPUSH Q2H PRN PRN Reason: Pain (severe 7-10) Ondansetron HCl (Zofran Odt) 4 mg PO Q6H PRN PRN Reason: Nausea able to take PO Oxycodone HCl (Oxycodone) 5 mg PO Q4H PRN PRN Reason: Pain (moderate 4-6) Last Admin: 09/13/16 05:36 Dose: 5 mg Sodium Chloride (Saline Flush) 10 ml FLUSH ASDIRECTED PRN PRN Reason: Keep Vein Open Last Admin: 09/12/16 21:26 Dose: 10 ml Zolpidem Tartrate (Ambien) 5 mg PO BEDTIME PRN PRN Reason: Sleep Discontinued Medications Albuterol/Ipratropium (Duoneb 3.0-0.5 Mg/3 Ml) 3 ml NEB ONETIME ONE Stop: 09/12/16 21:18 Last Admin: 09/12/16 21:32 Dose: 3 ml Albuterol/Ipratropium (Duoneb 3.0-0.5 Mg/3 Ml) 3 ml NEB QID [facility] Last Admin: 09/13/16 00:02 Dose: 3 ml Furosemide (Lasix) 40 mg PO DAILY [facility] Last Admin: 09/13/16 08:36 Dose: 40 mg Furosemide (Lasix) 80 mg IVPUSH ONETIME ONE Stop: 09/13/16 15:46 Last Admin: 09/13/16 16:30 Dose: 80 mg Sodium Chloride (Normal Saline) 1,000 mls @ 250 mls/hr IV ASDIRECTED [facility] Last Admin: 09/12/16 22:05 Dose: 250 mls/hr Sodium Chloride (Normal Saline) 1,000 mls @ 125 mls/hr IV ASDIRECTED [facility] Last Admin: 09/13/16 10:11 Dose: 125 mls/hr Insulin Detemir (Levemir) 44 unit SUBCUT BEDTIME [facility] Methylprednisolone Sodium Succinate (Solu-Medrol) 125 mg IVPUSH ONETIME ONE Stop: 09/12/16 22:01 Last Admin: 09/12/16 22:06 Dose: 125 mg Methylprednisolone Sodium Succinate (Solu-Medrol) 40 mg IVPUSH Q6H [facility] Last Admin: 09/14/16 04:36 Dose: 40 mg Methylprednisolone Sodium Succinate (Solu-Medrol) Confirm Administered Dose 40 mg .ROUTE .STK-MED ONE Stop: 09/13/16 04:59 Last Admin: 09/13/16 05:07 Dose: Not Given - Exam Quality Assessment: supplemental oxygen, DVT prophylaxis General: alert, oriented, cooperative, no acute distress Lungs: Clear to auscultation, Normal respiratory effort, Decreased breath sounds Cardiovascular: regular rate, regular rhythm, no murmurs Abdomen: bowel sounds present, soft, no tenderness, no distension Extremities: edema Skin: warm, dry, intact - Problem List Review Problem List Initiated/Reviewed/Updated: Yes - My Orders Last 24 Hours: My Active Orders 09/13/16 11:34 Convert IV to Saline Lock [OM.PC] Routine 09/14/16 08:02 Furosemide [Lasix] 80 mg IVPUSH ONETIME ONE 09/14/16 08:15 methylPREDNISolone Sod Succ [Solu-MEDROL] 40 mg IVPUSH Q12H 09/15/16 05:00 BASIC METABOLIC PANEL,BMP [CHEM] Timed MAGNESIUM [CHEM] Timed 09/15/16 08:00 Echo Comp wo Cont [US] Urgent - Plan Plan:: ASSESSMENT / PLAN HYPOXIC RESPIRATORY FAILURE, ACUTE ON CHRONIC-underlying COPD as well as probable component of congestive heart failure. Improved following diuresis yesterday CONGESTIVE HEART FAILURE WITH FLUID OVERLOAD -Echocardiogram on -Saline lock IV -Furosemide 80 mg IV now COPD excerbation with Hypoxia -Solumedrol 40 mg IV every 12 hours -Duo nebs as schedule -albuterol nebs prn -Telemetry -Oxygen per nasal cannula Diabetes type 2 -Lantus 44 units subcut at hs -Sliding scale with medium coverage -blood glucose before meals and hs -And a.m. labs: CBC, BMP history of stroke -ambulate with walker -referral to OT and PT -fall risk Maintenance issues -Orders home meds: -Nutrition: diabetic diet -Alexander catheter not indicated at this time -DVT: SCD -GI prophalaxis; Protonix 40 mg daily CODE STATUS: DNR/DNI Admission status: Admit to ICU Med overflow Admission justification. This patient will be admitted for inpatient services and is medically appropriate meeting medical necessity for inpatient admission as outlined in my documentation. I reasonably expect the patient will require inpatient services that span. Time over 2 midnights. I reasonably expect this patient to be discharged or transferred within 96 hours after admission to the critical access hospital. Disposition: home with sonLeonidas Primary care provider: Dr. Marin
[2016-09-14] MEDS ORDERED: Furosemide 40 MG/4 ML VIAL IVPUSH ONE (09:00)
[2016-09-14] MEDS: glipiZIDE 5 MG Tab.ER PO SCH (09:17)
[2016-09-14] MEDS: Aspirin 81 MG Tab.Chew PO SCH (09:17)
[2016-09-14] MEDS: Metoprolol Tartrate 50 MG Tab PO SCH ×2 (09:21→21:47)
[2016-09-14] MEDS: Allopurinol 100 MG Tab PO SCH (09:30)
[2016-09-14] MEDS: Clopidogrel 75 MG Tab PO SCH (09:30)
[2016-09-14] MEDS: Insulin Aspart 100 Units/ML 3 ML Pen SUBCUT SCH ×4 (09:31→21:50)
[2016-09-14] MEDS: atorvaSTATin 10 MG Tab PO SCH (21:47)
[2016-09-14] MEDS: Insulin Detemir 100 Units/ML 3 ML Pen SUBCUT SCH (21:50)
[2016-09-15] MEDS: methylPREDNISolone Sodium Succinate 40 MG/1 ML SDV IVPUSH SCH (04:06)
[2016-09-15] MEDS: Albuterol/Ipratropium 3.0-0.5 MG/3 ML Neb Soln NEB SCH ×4 (07:10→21:16)
[2016-09-15] MEDS: Allopurinol 100 MG Tab PO SCH (08:20)
[2016-09-15] MEDS: Metoprolol Tartrate 50 MG Tab PO SCH ×2 (08:20→21:24)
[2016-09-15] MEDS: Clopidogrel 75 MG Tab PO SCH (08:20)
[2016-09-15] MEDS: glipiZIDE 5 MG Tab.ER PO SCH (08:21)
[2016-09-15] MEDS: Aspirin 81 MG Tab.Chew PO SCH (08:21)
[2016-09-15] MEDS: Insulin Aspart 100 Units/ML 3 ML Pen SUBCUT SCH ×4 (08:22→21:21)
--- NOTE | 2016-09-15 09:31 | PCM.PN ---
- General Info Date of Service: 09/15/16 Functional Status: Reports: tolerating diet, ambulating, urinating - Review of Systems General: Reports: weakness. Denies: fever, chills Pulmonary: Reports: shortness of breath. Denies: pleuritic chest pain, cough, sputum, hemoptysis, wheezing Cardiovascular: Reports: dyspnea on exertion, edema. Denies: chest pain, palpitations, orthopnea, PND Gastrointestinal: Reports: No symptoms Systems Review Comment:: This patient has improved since admission, less shortness of breath with activity. Continues to show hypoxia especially with activity and there has been documented decreased saturation with walking which will qualify her for home oxygen. Discussed the possible need for [facility] placement which the patient and family adamantly refuse. Vital signs have been stable and she has remained afebrile. - Patient Data Vitals - most recent: Last Vital Signs Temp 97.9 F 09/15/16 07:35 Pulse 74 09/15/16 08:20 Resp 16 09/15/16 07:35 BP 150/77 H 09/15/16 08:20 Pulse Ox 94 L 09/15/16 07:35 Weight - most recent: 270 lb 0.002 oz I&O - last 24 hours: Intake & Output 09/14/16 09/15/16 09/15/16 22:59 06:59 14:59 Output Total 775 Balance -775 Lab Results last 24 hrs: Laboratory Results - last 24 hr 09/15/16 Range/Units 04:40 Sodium 144 (140-148) mmol/L Potassium 4.6 (3.6-5.2) mmol/L Chloride 100 (100-108) mmol/L Carbon Dioxide 41 H (21-32) mmol/L Anion Gap 7.6 (5.0-14.0) mmol/L BUN 51 H (7-18) mg/dL Creatinine 1.9 H (0.6-1.0) mg/dL Est Cr Clr Drug Dosing 22.60 mL/min Estimated GFR (MDRD) 26 L (>60) Glucose 200 H (74-106) mg/dL Calcium 7.6 L (8.5-10.1) mg/dL Magnesium 1.8 D (1.8-2.4) mg/dL Med Orders - Current: Current Medications Acetaminophen (Tylenol) 650 mg PO Q4H PRN PRN Reason: Pain (Mild 1-3)/fever Albuterol (Proventil Neb Soln) 2.5 mg NEB Q4H PRN PRN Reason: Shortness Of Breath/wheezing Albuterol/Ipratropium (Duoneb 3.0-0.5 Mg/3 Ml) 3 ml NEB QIDRT [facility] Last Admin: 09/15/16 07:10 Dose: 3 ml Allopurinol (Zyloprim) 100 mg PO DAILY [facility] Last Admin: 09/15/16 08:20 Dose: 100 mg Aspirin (Aspirin) 81 mg PO DAILY [facility] Last Admin: 09/15/16 08:21 Dose: 81 mg Atorvastatin Calcium (Lipitor) 10 mg PO BEDTIME [facility] Last Admin: 09/14/16 21:47 Dose: 10 mg Bisacodyl (Dulcolax) 5 mg PO DAILY PRN PRN Reason: Constipation Clopidogrel Bisulfate (Plavix) 75 mg PO DAILY [facility] Last Admin: 09/15/16 08:20 Dose: 75 mg Docusate Sodium (Colace) 100 mg PO BID PRN PRN Reason: Constipation Furosemide (Lasix) 80 mg IVPUSH ONETIME ONE Stop: 09/15/16 10:01 Furosemide (Lasix) 80 mg PO DAILY [facility] Glipizide (Glucotrol Xl) 10 mg PO DAILY [facility] Last Admin: 09/15/16 08:21 Dose: 10 mg Insulin Aspart (Novolog) 0 unit SUBCUT ASDIRECTED [facility] PRN Reason: Protocol Last Admin: 09/15/16 08:22 Dose: 4 units Insulin Detemir (Levemir) 60 unit SUBCUT BEDTIME [facility] Last Admin: 09/14/16 21:50 Dose: 60 units Lorazepam (Ativan) 0.5 mg IV Q6H PRN PRN Reason: Nausea/Vomiting Methylprednisolone Sodium Succinate (Solu-Medrol) 40 mg IVPUSH Q12H [facility] Last Admin: 09/15/16 04:06 Dose: 40 mg Metoprolol Tartrate (Lopressor) 100 mg PO BID [facility] Last Admin: 09/15/16 08:20 Dose: 100 mg Morphine Sulfate (Morphine) 2 mg IVPUSH Q2H PRN PRN Reason: Pain (severe 7-10) Ondansetron HCl (Zofran Odt) 4 mg PO Q6H PRN PRN Reason: Nausea able to take PO Oxycodone HCl (Oxycodone) 5 mg PO Q4H PRN PRN Reason: Pain (moderate 4-6) Last Admin: 09/13/16 05:36 Dose: 5 mg Sodium Chloride (Saline Flush) 10 ml FLUSH ASDIRECTED PRN PRN Reason: Keep Vein Open Last Admin: 09/12/16 21:26 Dose: 10 ml Zolpidem Tartrate (Ambien) 5 mg PO BEDTIME PRN PRN Reason: Sleep Discontinued Medications Albuterol/Ipratropium (Duoneb 3.0-0.5 Mg/3 Ml) 3 ml NEB ONETIME ONE Stop: 09/12/16 21:18 Last Admin: 09/12/16 21:32 Dose: 3 ml Albuterol/Ipratropium (Duoneb 3.0-0.5 Mg/3 Ml) 3 ml NEB QID [facility] Last Admin: 09/13/16 00:02 Dose: 3 ml Furosemide (Lasix) 40 mg PO DAILY [facility] Last Admin: 09/13/16 08:36 Dose: 40 mg Furosemide (Lasix) 80 mg IVPUSH ONETIME ONE Stop: 09/13/16 15:46 Last Admin: 09/13/16 16:30 Dose: 80 mg Furosemide (Lasix) 80 mg IVPUSH ONETIME ONE Stop: 09/14/16 09:01 Last Admin: 09/14/16 09:18 Dose: 80 mg Sodium Chloride (Normal Saline) 1,000 mls @ 250 mls/hr IV ASDIRECTED [facility] Last Admin: 09/12/16 22:05 Dose: 250 mls/hr Sodium Chloride (Normal Saline) 1,000 mls @ 125 mls/hr IV ASDIRECTED [facility] Last Admin: 09/13/16 10:11 Dose: 125 mls/hr Insulin Detemir (Levemir) 44 unit SUBCUT BEDTIME [facility] Insulin Detemir (Levemir) 44 unit SUBCUT BEDTIME [facility] Last Admin: 09/13/16 21:16 Dose: 44 units Methylprednisolone Sodium Succinate (Solu-Medrol) 125 mg IVPUSH ONETIME ONE Stop: 09/12/16 22:01 Last Admin: 09/12/16 22:06 Dose: 125 mg Methylprednisolone Sodium Succinate (Solu-Medrol) 40 mg IVPUSH Q6H [facility] Last Admin: 09/14/16 04:36 Dose: 40 mg Methylprednisolone Sodium Succinate (Solu-Medrol) Confirm Administered Dose 40 mg .ROUTE .STK-MED ONE Stop: 09/13/16 04:59 Last Admin: 09/13/16 05:07 Dose: Not Given - Exam Quality Assessment: DVT prophylaxis General: alert, cooperative, no acute distress Lungs: Clear to auscultation, Normal respiratory effort Cardiovascular: regular rate, regular rhythm, no murmurs Abdomen: bowel sounds present, soft, no tenderness, no distension Extremities: edema Skin: warm, dry, intact - Problem List Review Problem List Initiated/Reviewed/Updated: Yes - My Orders Last 24 Hours: My Active Orders 09/14/16 16:00 methylPREDNISolone Sod Succ [Solu-MEDROL] 40 mg IVPUSH Q12H 09/14/16 21:00 Insulin Detemir [Levemir] 60 unit SUBCUT BEDTIME 09/15/16 08:00 Echo Comp wo Cont [US] Urgent 09/15/16 09:24 Furosemide [Lasix] 80 mg IVPUSH ONETIME ONE 09/16/16 05:00 BASIC METABOLIC PANEL,BMP [CHEM] Timed 09/16/16 09:00 Furosemide [Lasix] 80 mg PO DAILY - Plan Plan:: ASSESSMENT / PLAN HYPOXIC RESPIRATORY FAILURE, ACUTE ON CHRONIC-underlying COPD as well as probable component of congestive heart failure. At baseline she likely has significant hypoxia and likely would've benefited from ongoing supplemental oxygen. She is qualified for home oxygen and plan will be to discharge her to home with oxygen tomorrow. CONGESTIVE HEART FAILURE WITH FLUID OVERLOAD -Echocardiogram today -Saline lock IV -Furosemide 80 mg IV now COPD excerbation with Hypoxia -Discontinue Solu-Medrol -Prednisone 40 mg by mouth daily -Duo nebs as schedule -albuterol nebs prn -Telemetry -Oxygen per nasal cannula Diabetes type 2-glucose levels have been elevated likely secondary to current glucocorticoid therapy. Dose of long-acting insulin has been increased -Lantus 60 units subcut at hs -Sliding scale with medium coverage -blood glucose before meals and hs -And a.m. labs: CBC, BMP history of stroke -ambulate with walker -referral to OT and PT -fall risk Maintenance issues -Orders home meds: -Nutrition: diabetic diet -Alexander catheter not indicated at this time -DVT: SCD -GI prophalaxis; Protonix 40 mg daily CODE STATUS: DNR/DNI Admission status: Admit to ICU Med overflow Admission justification. This patient will be admitted for inpatient services and is medically appropriate meeting medical necessity for inpatient admission as outlined in my documentation. I reasonably expect the patient will require inpatient services that span. Time over 2 midnights. I reasonably expect this patient to be discharged or transferred within 96 hours after admission to the critical access hospital. Disposition: home tomorrow Primary care provider: Dr. Marin
[2016-09-15] MEDS ORDERED: Furosemide 40 MG/4 ML VIAL IVPUSH ONE (10:00)
[2016-09-15] MEDS: Insulin Detemir 100 Units/ML 3 ML Pen SUBCUT SCH (21:20)
[2016-09-15] MEDS: atorvaSTATin 10 MG Tab PO SCH (21:24)
[2016-09-16] MEDS: Albuterol/Ipratropium 3.0-0.5 MG/3 ML Neb Soln NEB SCH ×2 (07:07→11:02)
[2016-09-16] MEDS ORDERED: predniSONE 20 MG Tab PO SCH (08:00)
[2016-09-16] MEDS: glipiZIDE 5 MG Tab.ER PO SCH (08:27)
[2016-09-16] MEDS: Metoprolol Tartrate 50 MG Tab PO SCH (08:27)
[2016-09-16] MEDS: Aspirin 81 MG Tab.Chew PO SCH (08:33)
[2016-09-16] MEDS: Allopurinol 100 MG Tab PO SCH (08:34)
[2016-09-16] MEDS: Clopidogrel 75 MG Tab PO SCH (08:34)
[2016-09-16] MEDS ORDERED: Furosemide 80 MG Tab PO SCH (09:00)
--- NOTE | 2016-09-16 09:00 | PCM.DCSUM1 ---
Discharge Summary - Hospital Course Brief History: This patient is a 81-year-old woman who was admitted through the emergency department with hypoxia secondary to COPD exacerbation and pulmonary edema. - Discharge Data Discharge Date: 09/16/16 Discharge Disposition: Home, W Home Health Agency 06 Condition: Stable - Discharge Diagnosis/Problem(s) (1) Diastolic CHF, acute on chronic SNOMED Code(s): 064775311, 084792788 ICD Code: I50.33 - ACUTE ON CHRONIC DIASTOLIC (CONGESTIVE) HEART FAILURE Status: Acute Current Visit: Yes (2) COPD exacerbation SNOMED Code(s): 993795896, 446448538 ICD Code: J44.1 - CHRONIC OBSTRUCTIVE PULMONARY DISEASE W (ACUTE) EXACERBATION Status: Acute Priority: High Current Visit: Yes (3) Hypoxemia SNOMED Code(s): 316746864 ICD Code: R09.02 - HYPOXEMIA Status: Acute Priority: High Current Visit : Yes (4) Diabetes mellitus type 2 in obese SNOMED Code(s): 98273485 ICD Code: E11.9 - TYPE 2 DIABETES MELLITUS WITHOUT COMPLICATIONS; E66.9 - OBESITY, UNSPECIFIED Status: Acute Priority: High Current Visit: Yes (5) CKD (chronic kidney disease) stage 4, GFR 15-29 ml/min SNOMED Code(s): 123130448 ICD Code: N18.4 - CHRONIC KIDNEY DISEASE, STAGE 4 (SEVERE) Status: Acute Current Visit: Yes (6) Acute kidney injury SNOMED Code(s): 47588291 ICD Code: N17.9 - ACUTE KIDNEY FAILURE, UNSPECIFIED Status: Acute Current Visit: Yes - Patient Summary/Data Consults: Consultations 09/12/16 22:57 Consult to Spiritual Care [CONS] Routine OT Evaluation and Treatment [CONS] Routine Please Evaluate and Treat. OT Reason for Consult: Discharge Planning This query below is only for informational purposes and is not editable. PT Evaluation and Treatment [CONS] Routine Please Evaluate and Treat. PT Reason for Consult: Strengthening This query below is only for informational purposes and is not editable. Hospital Course: Ms. Moreno is a 81-year-old woman developed symptoms of increased shortness of breath and was found to be more hypoxic than usual at home. She was brought into the emergency room for evaluation and had oxygen saturations on room air between 70-80%. Chest x-ray was obtained and showed some evidence of pulmonary edema but no obvious infiltrates. White blood cell count was within normal range and she was afebrile. She was felt to have probable COPD exacerbation secondary to viral upper respiratory tract infection as well as pulmonary edema. Her renal function was elevated from baseline at the time of admission and she initially was given some IV fluids but these were stopped the next day and she was started on more aggressive IV diuretic therapy. She received supplemental oxygen as well as nebulizer therapy and IV Solu-Medrol which was later changed to oral prednisone. Echocardiogram was obtained prior to discharge and showed preserved left ventricular function, she was felt to have probable diastolic dysfunction causing her pulmonary edema. She was documented to have persistent hypoxia with saturations of 80-83% with activity on room air and 87% on room air at rest. She will be discharged home with home oxygen. She 's instructed to follow a low-sodium diet and continue her current diuretic therapy. Activity will be as tolerated and she will resume her diabetic low- sodium diet. Followup appointment will be scheduled with Dr. Marin within one week and a BMP will be obtained at the time of followup appointment. - Patient Instructions Diet: Low Sodium, Diabetic Diet Activity: As Tolerated Other/Special Instructions: Schedule followup appointment with Dr. Marin within one week. BMP should be obtained at the time of followup appointment. - Discharge Plan Prescriptions/Med Rec: Prednisone [IJD: predniSONE] 40 mg PO WITHBREAKFAST #6 tablet Home Medications: Home Meds Allopurinol 100 mg PO DAILY 06/06/13 [History] Aspirin [Christ Chewable Aspirin] 81 mg PO DAILY 06/06/13 [History] Clopidogrel Bisulfate [Clopidogrel] 75 mg PO DAILY 06/06/13 [History] Metoprolol Tartrate [Lopressor] 100 mg PO BID 06/06/13 [History] Triamcinolone Acetonide [Kenalog 0.1% Crm] 454 gm TOP ASDIRECTED PRN 06/06/13 [ History] atorvaSTATin Calcium [Atorvastatin Calcium] 10 mg PO BEDTIME 06/06/13 [History] glipiZIDE [Glipizide ER] 10 mg PO DAILY 06/06/13 [History] Famotidine 10 mg PO BEDTIME 01/15/15 [History] Insulin Glarg,Human.Rec.Analog [Lantus] 44 unit SUBCUT BEDTIME 01/15/15 [History ] Furosemide [Lasix] 40 mg PO DAILY #30 tablet 01/21/15 [Rx] Cholecalciferol (Vitamin D3) [Vitamin D3] 2,000 unit PO DAILY 09/12/16 [History] [place]-3 Fatty Acids [Fish Oil] 1,000 mg PO DAILY 09/12/16 [History] Prednisone [IJD: predniSONE] 40 mg PO WITHBREAKFAST #6 tablet 09/16/16 [Rx] Referrals: Gadiel Marin MD [Primary Care Provider] - - Patient Data Vitals - Most Recent: Last Vital Signs Temp 96.9 F 09/16/16 08:00 Pulse 72 09/16/16 08:27 Resp 20 09/16/16 08:00 BP 147/77 H 09/16/16 08:27 Pulse Ox 92 L 09/16/16 08:00 Weight - Most Recent: 270 lb 0.002 oz I&O - Last 24 hours: Intake & Output 09/15/16 09/16/16 09/16/16 22:59 06:59 14:59 Intake Total 200 Output Total 950 Balance -750 Lab Results - Last 24 hrs: Laboratory Results - last 24 hr 09/16/16 Range/Units 05:00 Sodium 146 (140-148) mmol/L Potassium 4.0 (3.6-5.2) mmol/L Chloride 102 (100-108) mmol/L Carbon Dioxide 41 H (21-32) mmol/L Anion Gap 7.0 (5.0-14.0) mmol/L BUN 54 H (7-18) mg/dL Creatinine 1.8 H (0.6-1.0) mg/dL Est Cr Clr Drug Dosing 23.85 mL/min Estimated GFR (MDRD) 27 L (>60) Glucose 82 (74-106) mg/dL Calcium 7.7 L (8.5-10.1) mg/dL Med Orders - Current: Current Medications Acetaminophen (Tylenol) 650 mg PO Q4H PRN PRN Reason: Pain (Mild 1-3)/fever Albuterol (Proventil Neb Soln) 2.5 mg NEB Q4H PRN PRN Reason: Shortness Of Breath/wheezing Albuterol/Ipratropium (Duoneb 3.0-0.5 Mg/3 Ml) 3 ml NEB QIDRT [facility] Last Admin: 09/16/16 07:07 Dose: 3 ml Allopurinol (Zyloprim) 100 mg PO DAILY [facility] Last Admin: 09/16/16 08:34 Dose: 100 mg Aspirin (Aspirin) 81 mg PO DAILY [facility] Last Admin: 09/16/16 08:33 Dose: 81 mg Atorvastatin Calcium (Lipitor) 10 mg PO BEDTIME [facility] Last Admin: 09/15/16 21:24 Dose: 10 mg Bisacodyl (Dulcolax) 5 mg PO DAILY PRN PRN Reason: Constipation Clopidogrel Bisulfate (Plavix) 75 mg PO DAILY [facility] Last Admin: 09/16/16 08:34 Dose: 75 mg Docusate Sodium (Colace) 100 mg PO BID PRN PRN Reason: Constipation Furosemide (Lasix) 80 mg PO DAILY [facility] Last Admin: 09/16/16 08:33 Dose: 80 mg Glipizide (Glucotrol Xl) 10 mg PO DAILY [facility] Last Admin: 09/16/16 08:27 Dose: 10 mg Insulin Aspart (Novolog) 0 unit SUBCUT ASDIRECTED [facility] PRN Reason: Protocol Last Admin: 09/15/16 21:21 Dose: 6 units Insulin Detemir (Levemir) 60 unit SUBCUT BEDTIME [facility] Last Admin: 09/15/16 21:20 Dose: 60 units Lorazepam (Ativan) 0.5 mg IV Q6H PRN PRN Reason: Nausea/Vomiting Metoprolol Tartrate (Lopressor) 100 mg PO BID [facility] Last Admin: 09/16/16 08:27 Dose: 100 mg Morphine Sulfate (Morphine) 2 mg IVPUSH Q2H PRN PRN Reason: Pain (severe 7-10) Ondansetron HCl (Zofran Odt) 4 mg PO Q6H PRN PRN Reason: Nausea able to take PO Oxycodone HCl (Oxycodone) 5 mg PO Q4H PRN PRN Reason: Pain (moderate 4-6) Last Admin: 09/13/16 05:36 Dose: 5 mg Prednisone (Prednisone) 40 mg PO WITHBREAKFAST [facility] Last Admin: 09/16/16 08:26 Dose: 40 mg Sodium Chloride (Saline Flush) 10 ml FLUSH ASDIRECTED PRN PRN Reason: Keep Vein Open Last Admin: 09/12/16 21:26 Dose: 10 ml Zolpidem Tartrate (Ambien) 5 mg PO BEDTIME PRN PRN Reason: Sleep Discontinued Medications Albuterol/Ipratropium (Duoneb 3.0-0.5 Mg/3 Ml) 3 ml NEB ONETIME ONE Stop: 09/12/16 21:18 Last Admin: 09/12/16 21:32 Dose: 3 ml Albuterol/Ipratropium (Duoneb 3.0-0.5 Mg/3 Ml) 3 ml NEB QID [facility] Last Admin: 09/13/16 00:02 Dose: 3 ml Furosemide (Lasix) 40 mg PO DAILY [facility] Last Admin: 09/13/16 08:36 Dose: 40 mg Furosemide (Lasix) 80 mg IVPUSH ONETIME ONE Stop: 09/13/16 15:46 Last Admin: 09/13/16 16:30 Dose: 80 mg Furosemide (Lasix) 80 mg IVPUSH ONETIME ONE Stop: 09/14/16 09:01 Last Admin: 09/14/16 09:18 Dose: 80 mg Furosemide (Lasix) 80 mg IVPUSH ONETIME ONE Stop: 09/15/16 10:01 Last Admin: 09/15/16 10:18 Dose: 80 mg Sodium Chloride (Normal Saline) 1,000 mls @ 250 mls/hr IV ASDIRECTED [facility] Last Admin: 09/12/16 22:05 Dose: 250 mls/hr Sodium Chloride (Normal Saline) 1,000 mls @ 125 mls/hr IV ASDIRECTED [facility] Last Admin: 09/13/16 10:11 Dose: 125 mls/hr Insulin Detemir (Levemir) 44 unit SUBCUT BEDTIME [facility] Insulin Detemir (Levemir) 44 unit SUBCUT BEDTIME [facility] Last Admin: 09/13/16 21:16 Dose: 44 units Methylprednisolone Sodium Succinate (Solu-Medrol) 125 mg IVPUSH ONETIME ONE Stop: 09/12/16 22:01 Last Admin: 09/12/16 22:06 Dose: 125 mg Methylprednisolone Sodium Succinate (Solu-Medrol) 40 mg IVPUSH Q6H [facility] Last Admin: 09/14/16 04:36 Dose: 40 mg Methylprednisolone Sodium Succinate (Solu-Medrol) Confirm Administered Dose 40 mg .ROUTE .STK-MED ONE Stop: 09/13/16 04:59 Last Admin: 09/13/16 05:07 Dose: Not Given Methylprednisolone Sodium Succinate (Solu-Medrol) 40 mg IVPUSH Q12H [facility] Last Admin: 09/15/16 04:06 Dose: 40 mg *Q Meaningful Use (DIS) - VTE *Q VTE Criteria *Q: - Stroke *Q Stroke Criteria *Q: - AMI *Q AMI Criteria *Q:
[2016-09-16] MEDS: Insulin Aspart 100 Units/ML 3 ML Pen SUBCUT SCH (11:37)
[2016-09-16 12:29] VITALS: BP 148/51
--- NOTE | 2016-09-16 13:00 | ECHO ---
REFERRING PRACTITIONER: 1. AO ROOT: 2.86. (NL = 2.0-3.7) 2. AORTIC VALVE EXCURSION: 3. LA: 3.27 CM (NL = 1.9-4.0) 4. RV: 2.16. (NL = .09-2.6) 5. LV SOTELO: 5.38 (NL = 3.5-5.7) 6. LV SYST:3.29 (NL = 2.2-4.3) 7. FRACTIONAL SHORTENIN. (2542) 8. EJECTION FRACTION: 60-65%. (5075) 9. IVS: 1.08 (NL = 0.6-1.1) 10. LVPW:0.96 (NL = 0.6 1.1) REPORT TITLE: Echocardiogram. INDICATION: Pulmonary edema. Assess of left ventricular function and valvular status. By 2D echo, left ventricular function appears to be normal consistent with estimated ejection fraction of 60% to 65%. There are no specific wall motion abnormalities or pericardial effusion seen. Study in general is of fairly poor technical quality limiting available information and compromising interpretation. Chamber sizes grossly appeared to be within normal range for size. There is some calcification of the aortic valve leaflets without impairment of leaflet motion. Mitral valve appears to be structurally normal. Tricuspid and pulmonic valves were not well visualized. By Doppler and color Doppler, there is no available assessment of right ventricular pressure. There is trace MR and TR. IMPRESSION: 1. Study is of poor technical quality limiting available information and compromising interpretation. 2. Grossly normal left ventricular function and estimated ejection fraction of 60% to 65%. 3. No obvious wall motion abnormalities identified on the study. 4. Chamber sizes appear to be within normal range. 5. Aortic sclerosis without stenosis. 6. Trace MR and TR. /[id number] VIRIDIANA
== END 2016-09-16 14:25 | disposition home health service (06) | DRG 190 ==
LOC: JP.ED 19:41 → JP.ICU 21:47 → JP.SDSSCHI 09-16 13:29 → JP.ICU 09-16 13:38
PROVIDERS: ADMIT Hospitalist; ATTEND Hospitalist
DX: J44.1 Chronic obstructive pulmonary disease with (acute) exacerbation (principal); I50.33 Acute on chronic diastolic (congestive) heart failure; I13.0 Hypertensive heart and chronic kidney disease with heart failure and stage 1 through stage 4 chronic kidney disease, or unspecified chronic kidney disease; N18.4 Chronic kidney disease, stage 4 (severe); N17.9 Acute kidney failure, unspecified; J06.9 Acute upper respiratory infection, unspecified; R09.02 Hypoxemia; Z79.4 Long term (current) use of insulin; Z79.82 Long term (current) use of aspirin; E78.5 Hyperlipidemia, unspecified; K21.9 Gastro-esophageal reflux disease without esophagitis; Z86.73 Personal history of transient ischemic attack (TIA), and cerebral infarction without residual deficits; E66.9 Obesity, unspecified; Z66 Do not resuscitate; E11.9 Type 2 diabetes mellitus without complications
CPT/HCPCS: 36415; 36600; 71010 ×2; 80053; 82150; 82803; 83605; 83690; 83880; 85025; 87040 ×2; 94640; 99285 ×2; J7050; J7620; 80048; 81001; 82962; 83735; 93306; 93306-26; 96374; 97162-GP; 97165-GO; 97530-GP; A9270-GY; J1940; J2920; J2930; J7040

== ENCOUNTER 2018-08-17 13:00 | Emergency (ER) | payer MEDICARE, MEDICAID ==
[2018-08-17 13:56] VITALS: BP 148/51
--- NOTE | 2018-08-17 14:44 | EDM.PDOC ---
ED HPI GENERAL MEDICAL PROBLEM - General Chief Complaint: General Stated Complaint: ACTING STRANGE Time Seen by Provider: 08/17/18 14:15 Source of Information: Reports: Patient, Family, Old Records History Limitations: Reports: No Limitations - History of Present Illness INITIAL COMMENTS - FREE TEXT/NARRATIVE: 82 yo female on home oxygen and with NIDDM managed with insulin presents with unusual somnolence associated with sleeping(hard to awaken). Her son who is here now notes that once she is fully awake she is her normal self. This somnolence has been present for a month or so. At her last office visit her insulin dose was increased by 4 units. She is on home oxygen and he notes that her pulse ox has been showing higher oxygen levels lately on her usual 2 liters/ min/nc. No recent illnesses or other changes in her home meds. Does not snore a lot or stop breathing. Stopped her pain med 3-4 days ago and this did not change what he has been observing. A recent clinic glc was about 250 and her HgbA1C was about 8.3. Onset: Gradual Duration: Week(s):, Waxing/Waning (with sleeping ) Location: Reports: Generalized Quality: Reports: Other (no pain) Severity: Moderate Improves with: Reports: Other (being fully awake) Worsens with: Reports: Other (sleeping) Context: Reports: Other (uncertain, see HPI) Associated Symptoms: Reports: Confusion (when first awakened.). 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) (none) - Related Data Allergies Allergy/AdvReac Type Severity Reaction Status Date / Time No Known Allergies Allergy Verified 08/17/18 13:47 Home Meds: Home Meds Allopurinol 100 mg PO DAILY 06/06/13 [History] Aspirin [Christ Chewable Aspirin] 81 mg PO DAILY 06/06/13 [History] Clopidogrel Bisulfate [Clopidogrel] 75 mg PO DAILY 06/06/13 [History] Metoprolol Tartrate [Lopressor] 100 mg PO BID 06/06/13 [History] Triamcinolone Acetonide [Kenalog 0.1% Crm] 454 gm TOP ASDIRECTED PRN 06/06/13 [ History] atorvaSTATin Calcium [Atorvastatin Calcium] 10 mg PO BEDTIME 06/06/13 [History] glipiZIDE [Glipizide ER] 10 mg PO DAILY 06/06/13 [History] Famotidine 10 mg PO BEDTIME 01/15/15 [History] Insulin Glarg,Human.Rec.Analog [Lantus] 60 unit SUBCUT BEDTIME 01/15/15 [History ] Furosemide [Lasix] 40 mg PO DAILY #30 tablet 01/21/15 [Rx] Cholecalciferol (Vitamin D3) [Vitamin D3] 2,000 unit PO DAILY 09/12/16 [History] [place]-3 Fatty Acids [Fish Oil] 1,000 mg PO DAILY 09/12/16 [History] Prednisone [IJD: predniSONE] 40 mg PO WITHBREAKFAST #6 tablet 09/16/16 [Rx] Gabapentin [Neurontin] 10 mg PO BID 08/17/18 [History] Past Medical History HEENT History: Reports: Impaired Vision Cardiovascular History: Reports: High Cholesterol, Hypertension Respiratory History: Reports: COPD Gastrointestinal History: Reports: Chronic Constipation, GERD Genitourinary History: Reports: Acute Renal Failure 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: , Spontaneous Musculoskeletal History: Reports: Fracture Neurological History: Reports: CVA Endocrine/Metabolic History: Reports: Diabetes, Type II Hematologic History: Reports: Blood Transfusion(s) - Infectious Disease History Infectious Disease History: Reports: Chicken Pox, Measles - Past Surgical History HEENT Surgical History: Reports: Cataract Surgery Other Musculoskeletal Surgeries/Procedures:: fx hip with surgical repair Social & Family History - Tobacco Use Smoking Status *Q: Never Smoker Second Hand Smoke Exposure: No - Caffeine Use Caffeine Use: Reports: Soda Other Caffeine Use: 1 can per day - Recreational Drug Use Recreational Drug Use: No - Living Situation & Occupation Living situation: Reports: , with Family Occupation: Disabled ED ROS GENERAL - Review of Systems Review Of Systems: See Below Constitutional: Reports: No Symptoms HEENT: Reports: No Symptoms Respiratory: Reports: No Symptoms Cardiovascular: Reports: No Symptoms Endocrine: Reports: No Symptoms GI/Abdominal: Reports: No Symptoms : Reports: No Symptoms Musculoskeletal: Reports: No Symptoms Skin: Reports: No Symptoms Neurological: Reports: No Symptoms Psychiatric: Reports: No Symptoms ED EXAM, GENERAL - Physical Exam Exam: See Below Exam Limited By: No Limitations General Appearance: Alert, WD/WN, No Apparent Distress, Obese Eye Exam: Bilateral Eye: Normal Inspection Ears: Normal External Exam, Normal Canal, Hearing Loss, Other (hearing aids bilat.) Ear Exam: Bilateral Ear: Auricle Normal, Canal Normal Nose: Normal Inspection, Normal Mucosa, No Blood Throat/Mouth: Normal Inspection, Normal Lips, Normal Oropharynx, Normal Voice, No Airway Compromise Head: Atraumatic, Normocephalic Neck: Normal Inspection Respiratory/Chest: No Respiratory Distress, Lungs Clear, Normal Breath Sounds, No Accessory Muscle Use Cardiovascular: Regular Rate, Rhythm, No Edema GI/Abdominal: Normal Bowel Sounds, Soft, Non-Tender, No Distention Back Exam: Normal Inspection. No: CVA Tenderness (R), CVA Tenderness (L) Extremities: Normal Inspection, Normal Range of Motion, Non-Tender, No Pedal Edema Neurological: Alert, Oriented, CN II-XII Intact, Normal Cognition, No Motor/ Sensory Deficits Psychiatric: Normal Affect, Normal Mood Skin Exam: Warm, Dry, Intact, Normal Color, No Rash Lymphatic: No Adenopathy Course - Vital Signs Last Recorded V/S: Last Vital Signs Temp 35.8 C 08/17/18 13:48 Pulse 63 08/17/18 13:48 Resp 17 08/17/18 13:48 BP 148/51 H 08/17/18 13:48 Pulse Ox 95 08/17/18 13:48 Departure - Departure Time of Disposition: 14:47 Disposition: Home, Self-Care 01 Condition: Good Clinical Impression: Sleep disorder due to a general medical condition, hypersomnia type - Discharge Information *PRESCRIPTION DRUG MONITORING PROGRAM REVIEWED*: Not Applicable *COPY OF PRESCRIPTION DRUG MONITORING REPORT IN PATIENT YASMINE: Not Applicable Referrals: Gadiel Marin MD [Primary Care Provider] - Additional Instructions: Cut her oxygen per nasal cannula down to 1.5 liters/min. Check her blood sugar the next time she is found to be hard to arouse. F/U with your provider as needed.
== END 2018-08-17 15:02 | disposition home or self-care (01) ==
LOC: JP.ED 13:00
DX: G47.14 Hypersomnia due to medical condition (principal); E11.9 Type 2 diabetes mellitus without complications; I10 Essential (primary) hypertension; E78.00 Pure hypercholesterolemia, unspecified; K21.9 Gastro-esophageal reflux disease without esophagitis; J44.9 Chronic obstructive pulmonary disease, unspecified; Z79.82 Long term (current) use of aspirin; Z79.4 Long term (current) use of insulin; Z79.899 Other long term (current) drug therapy
CPT/HCPCS: 99284

== ENCOUNTER 2018-12-14 16:44 | Inpatient (IN) | payer MEDICARE, MEDICAID ==
[2018-12-14] MEDS ORDERED: Acetaminophen 325 MG Tab PO ONE (17:49)
[2018-12-14] MEDS: Lactated Ringers 1,000 ML IV SCH ×2 (17:52→21:27)
--- NOTE | 2018-12-14 17:53 | EDM.PDOC ---
<OfficerAbhay - Last Filed: 12/14/18 17:49> ED HPI GENERAL MEDICAL PROBLEM - General Chief Complaint: General Stated Complaint: MEDICAL Time Seen by Provider: 12/14/18 17:23 Source of Information: Reports: Patient, Family History Limitations: Reports: No Limitations - History of Present Illness INITIAL COMMENTS - FREE TEXT/NARRATIVE: 83 yo female present to ED with the c/o weakness, has been ill for the last couple of days with increasing SOB and sputum production, giovanny fevers weight gain or GI symptoms. normal on 2 l nc for her copd but family has noted that desaturation is faster over the last couple of days. - Related Data Allergies Allergy/AdvReac Type Severity Reaction Status Date / Time No Known Allergies Allergy Verified 12/14/18 17:19 Home Meds: Home Meds Allopurinol 100 mg PO DAILY 06/06/13 [History] Aspirin [Christ Chewable Aspirin] 81 mg PO DAILY 06/06/13 [History] Clopidogrel Bisulfate [Clopidogrel] 75 mg PO BEDTIME 06/06/13 [History] Metoprolol Tartrate [Lopressor] 100 mg PO BID 06/06/13 [History] Triamcinolone Acetonide [Kenalog 0.1% Crm] 454 gm TOP ASDIRECTED PRN 06/06/13 [ History] atorvaSTATin Calcium [Atorvastatin Calcium] 10 mg PO BEDTIME 06/06/13 [History] glipiZIDE [Glipizide ER] 10 mg PO DAILY 06/06/13 [History] Famotidine 10 mg PO BEDTIME 01/15/15 [History] Insulin Glarg,Human.Rec.Analog [Lantus] 64 unit SUBCUT BEDTIME 01/15/15 [History ] Furosemide [Lasix] 40 mg PO DAILY #30 tablet 01/21/15 [Rx] Cholecalciferol (Vitamin D3) [Vitamin D3] 2,000 unit PO DAILY 09/12/16 [History] [place]-3 Fatty Acids [Fish Oil] 1,000 mg PO DAILY 09/12/16 [History] Prednisone [IJD: predniSONE] 40 mg PO WITHBREAKFAST #6 tablet 09/16/16 [Rx] Gabapentin [Neurontin] 100 mg PO BID 08/17/18 [History] Past Medical History HEENT History: Reports: Impaired Vision Cardiovascular History: Reports: High Cholesterol, Hypertension Respiratory History: Reports: COPD Gastrointestinal History: Reports: Chronic Constipation, GERD Genitourinary History: Reports: Acute Renal Failure 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: , Spontaneous Musculoskeletal History: Reports: Fracture Neurological History: Reports: CVA Endocrine/Metabolic History: Reports: Diabetes, Type II Hematologic History: Reports: Blood Transfusion(s) - Infectious Disease History Infectious Disease History: Reports: Chicken Pox, Measles - Past Surgical History HEENT Surgical History: Reports: Cataract Surgery Other Musculoskeletal Surgeries/Procedures:: fx hip with surgical repair Social & Family History - Tobacco Use Smoking Status *Q: Never Smoker - Caffeine Use Caffeine Use: Reports: Soda Other Caffeine Use: 1 can per day - Recreational Drug Use Recreational Drug Use: No - Living Situation & Occupation Living situation: Reports: , with Family Occupation: Disabled ED ROS GENERAL - Review of Systems Review Of Systems: See Below Constitutional: Reports: Weakness. Denies: Fever HEENT: Reports: No Symptoms Respiratory: Reports: Shortness of Breath, Cough, Sputum. Denies: Wheezing Cardiovascular: Reports: Dyspnea on Exertion. Denies: Chest Pain GI/Abdominal: Reports: No Symptoms : Reports: No Symptoms Musculoskeletal: Reports: No Symptoms Skin: Reports: No Symptoms Neurological: Reports: No Symptoms ED EXAM, GENERAL - Physical Exam Exam: See Below Exam Limited By: No Limitations General Appearance: Alert, WD/WN, No Apparent Distress Eye Exam: Bilateral Eye: Normal Inspection Ears: Normal External Exam, Normal Canal, Hearing Grossly Normal Ear Exam: Right Ear: Other (Cerumen), Left Ear: TM normal Nose: Normal Inspection, Normal Mucosa, No Blood Throat/Mouth: Normal Inspection, Normal Lips, Normal Teeth, Normal Gums, Normal Oropharynx, Normal Voice, No Airway Compromise Head: Atraumatic, Normocephalic Neck: Normal Inspection, Supple, Non-Tender, Full Range of Motion Respiratory/Chest: No Respiratory Distress, Lungs Clear, Decreased Breath Sounds Cardiovascular: Regular Rate, Rhythm, No Murmur GI/Abdominal: Soft, Non-Tender Extremities: Non-Tender, Pedal Edema Course - Vital Signs Last Recorded V/S: Last Vital Signs Temp 37.9 C 12/14/18 18:33 Pulse 69 12/14/18 17:15 Resp 25 H 12/14/18 19:00 BP 138/59 L 12/14/18 19:00 Pulse Ox 95 12/14/18 19:00 - Orders/Labs/Meds Orders: Active Orders 24 hr Category Date Time Status EKG Documentation Completion [RC] ASDIRECTED Care 12/14/18 17:52 Active Insert Alexander Catheter [Insert Urinary Catheter] [OM.PC] Care 12/14/18 18:30 Ordered Q24H RT Aerosol Therapy [RC] ASDIRECTED Care 12/14/18 18:22 Active Urinary Catheter Assessment [RC] ASDIRECTED Care 12/14/18 18:19 Active Vital Signs [RC] Q1H Care 12/14/18 17:39 Active CULTURE BLOOD [BC] Urgent Lab 12/14/18 17:40 Received CULTURE BLOOD [BC] Urgent Lab 12/14/18 17:40 Received CULTURE URINE [RM] Stat Lab 12/14/18 18:50 Ordered CULTURE URINE [RM] Urgent Lab 12/14/18 18:50 Ordered PROCALCITONIN [CHEM] Stat Lab 12/14/18 17:48 Ordered UA W/MICROSCOPIC [URIN] Stat Lab 12/14/18 18:50 Ordered Lactated Ringers [Ringers, Lactated] 1,000 ml Med 12/14/18 17:45 Active IV ASDIRECTED Blood Culture x2 Reflex Set [OM.PC] Urgent Oth 12/14/18 17:39 Ordered EKG 12 Lead [EK] Stat Ther 12/14/18 17:52 Ordered Medication Orders Lactated Ringer's (Ringers, Lactated) 1,000 mls @ 500 mls/hr IV ASDIRECTED SHLOMO Last Admin: 12/14/18 17:52 Dose: 500 mls/hr Labs: Laboratory Tests 12/14/18 12/14/18 12/14/18 Range/Units 17:40 17:40 17:40 WBC 11.0 (4.5-11.0) K/uL RBC 4.03 (3.30-5.50) M/uL Hgb 10.5 L D (12.0-15.0) g/dL Hct 36.6 (36.0-48.0) % MCV 91 (80-98) fL MCH 26 L (27-31) pg MCHC 29 L (32-36) % Plt Count 207 (150-400) K/uL Neut % (Auto) 74 H (36-66) % Lymph % (Auto) 14 L (24-44) % [place] % (Auto) 10 H (2-6) % Eos % (Auto) 2 (2-4) % Baso % (Auto) 0 (0-1) % Sodium 143 (140-148) mmol/L Potassium 3.8 (3.6-5.2) mmol/L Chloride 101 (100-108) mmol/L Carbon Dioxide 37 H (21-32) mmol/L Anion Gap 8.8 (5.0-14.0) mmol/L BUN 47 H (7-18) mg/dL Creatinine 1.9 H (0.6-1.0) mg/dL Est Cr Clr Drug Dosing 20.05 mL/min Estimated GFR (MDRD) 25 L (>60) Glucose 79 (74-106) mg/dL Lactic Acid 1.0 (0.4-2.0) mmol/L Calcium 9.1 D (8.5-10.1) mg/dL Total Bilirubin 0.6 (0.2-1.0) mg/dL AST 14 L (15-37) U/L ALT 11 L (12-78) U/L Alkaline Phosphatase 95 (46-116) U/L C-Reactive Protein 2.80 H (0.0-0.3) mg/dL NT-Pro-B Natriuret Pep (5-450) pg/mL Total Protein 6.6 (6.4-8.2) g/dL Albumin 2.5 L (3.4-5.0) g/dL Globulin 4.1 H (2.3-3.5) g/dL Albumin/Globulin Ratio 0.6 L (1.2-2.2) 12/14/18 Range/Units 17:40 WBC (4.5-11.0) K/uL RBC (3.30-5.50) M/uL Hgb (12.0-15.0) g/dL Hct (36.0-48.0) % MCV (80-98) fL MCH (27-31) pg MCHC (32-36) % Plt Count (150-400) K/uL Neut % (Auto) (36-66) % Lymph % (Auto) (24-44) % [place] % (Auto) (2-6) % Eos % (Auto) (2-4) % Baso % (Auto) (0-1) % Sodium (140-148) mmol/L Potassium (3.6-5.2) mmol/L Chloride (100-108) mmol/L Carbon Dioxide (21-32) mmol/L Anion Gap (5.0-14.0) mmol/L BUN (7-18) mg/dL Creatinine (0.6-1.0) mg/dL Est Cr Clr Drug Dosing mL/min Estimated GFR (MDRD) (>60) Glucose (74-106) mg/dL Lactic Acid (0.4-2.0) mmol/L Calcium (8.5-10.1) mg/dL Total Bilirubin (0.2-1.0) mg/dL AST (15-37) U/L ALT (12-78) U/L Alkaline Phosphatase (46-116) U/L C-Reactive Protein (0.0-0.3) mg/dL NT-Pro-B Natriuret Pep 532 H (5-450) pg/mL Total Protein (6.4-8.2) g/dL Albumin (3.4-5.0) g/dL Globulin (2.3-3.5) g/dL Albumin/Globulin Ratio (1.2-2.2) Meds: Medications Generic Name Dose Route Start Last Admin Trade Name Freq PRN Reason Stop Dose Admin Lactated Ringer's 1,000 mls @ 500 mls/hr 12/14/18 17:45 12/14/18 17:52 Ringers, Lactated IV 500 mls/hr ASDIRECTED SHLOMO Administration Discontinued Medications Generic Name Dose Route Start Last Admin Trade Name Freq PRN Reason Stop Dose Admin Acetaminophen 650 mg 12/14/18 17:49 12/14/18 17:58 Tylenol PO 12/14/18 17:50 650 mg NOW ONE Administration Albuterol 2.5 mg 12/14/18 18:22 12/14/18 18:30 Proventil Neb Soln NEB 12/14/18 18:23 2.5 mg ONETIME ONE Administration Albuterol/Ipratropium 3 ml 12/14/18 18:22 12/14/18 18:30 Duoneb 3.0-0.5 Mg/3 Ml NEB 12/14/18 18:23 3 ml ONETIME ONE Administration Departure - Departure Clinical Impression: Diastolic CHF, acute on chronic, Respiratory distress, Hypoxia - Discharge Information Referrals: Gadiel Marin MD [Primary Care Provider] - Forms: ED Department Discharge - My Orders Last 24 Hours: My Active Orders 12/14/18 18:19 Urinary Catheter Assessment [RC] ASDIRECTED 12/14/18 18:22 RT Aerosol Therapy [RC] ASDIRECTED 12/14/18 18:30 Insert Alexander Catheter [Insert Urinary Catheter] [OM.PC] Q24H 12/14/18 18:50 CULTURE URINE [RM] Stat UA W/MICROSCOPIC [URIN] Stat - Assessment/Plan Last 24 Hours: My Active Orders 12/14/18 18:19 Urinary Catheter Assessment [RC] ASDIRECTED 12/14/18 18:22 RT Aerosol Therapy [RC] ASDIRECTED 12/14/18 18:30 Insert Alexander Catheter [Insert Urinary Catheter] [OM.PC] Q24H 12/14/18 18:50 CULTURE URINE [RM] Stat UA W/MICROSCOPIC [URIN] Stat <Ange Moser - Last Filed: 12/14/18 19:18> ED ROS GENERAL - Review of Systems Constitutional: Reports: Fever (Limited due to respiratory distress. Son is helpful oat bedside ) Cardiovascular: Reports: Edema Endocrine: Reports: Fatigue GI/Abdominal: Reports: No Symptoms : Reports: Dysuria, Incontinence Musculoskeletal: Reports: No Symptoms (new or concerning ) Skin: Reports: Rash ( area ) Neurological: Reports: Confusion, Weakness Psychiatric: Reports: Agitation Hematologic/Lymphatic: Reports: No Symptoms Immunologic: Reports: No Symptoms ED EXAM, GENERAL - Physical Exam Exam Limited By: Respiratory Distress (unable to speak in full sentences) General Appearance: Alert, WD/WN, Anxious, Mild Distress, Other (elevated temperature noted) Eye Exam: Bilateral Eye: EOMI, PERRL Ears: Normal External Exam, Normal Canal, Hearing Grossly Normal, Normal TMs Ear Exam: Bilateral Ear: Auricle Normal, Canal Normal, TM normal Nose: Normal Inspection, Normal Mucosa, No Blood Throat/Mouth: Normal Inspection, Normal Lips, Normal Oropharynx, Normal Voice, No Airway Compromise Head: Atraumatic, Normocephalic Neck: Normal Inspection, Supple, Non-Tender, Full Range of Motion Respiratory/Chest: Decreased Breath Sounds (through out ) Cardiovascular: Systolic Murmur. No: No Edema (bilateral +2-3 pitting edema noted), JVD GI/Abdominal: Soft, Non-Tender (limited due to body habitus) (Female) Exam: Other (signficant erythema, induration, bleeding and macerated due to sitting in wet depends) Rectal (Female) Exam: Deferred Back Exam: Normal Inspection, Full Range of Motion, NT Extremities: Normal Inspection, Normal Range of Motion, No Pedal Edema, Normal Capillary Refill, Pedal Edema Neurological: Alert, Oriented, CN II-XII Intact, Normal Cognition, Normal Gait, Normal Reflexes, No Motor/Sensory Deficits Psychiatric: Anxious Skin Exam: Warm, Dry, Intact, Normal Color, No Rash Course - Radiology Interpretation Free Text/Narrative:: CXR Portable (One View): Cardiomegaly noted. No significant acute cardiopulmonary findings noted. Radiology report reviewed. - Re-Assessments/Exams Free Text/Narrative Re-Assessment/Exam: Repeat assessment completed. Unable to speak in full sentences with increased respiratory rate. Unable to hear crackles, rhonchi or wheezes due to significant decreased breath sounds heard throughout. Discussed COPD diagnosis which is treated solely with oxygen due to patient declining inhalers or neb treatment at home. Son is very aware of her medical history and medications, he and are available at bedside to answer questions and supportive. Previous EKG January 2015 and Cardiac Echo reviewed: Echocardiogram completed on September 25, 2016. Impression: 1. This study was of poor technical quality limiting available information compromising interpretation. 2. Grossly normal left ventricular function estimated ejection fracture 6065 3. Obvious wall motion of the maladies identified and study. 4. Chamber size appears to be within normal range. 5. Aortic sclerosis without stenosis. 6. Trace mitral regurg and tricuspid regurg. 12/14/18 18:40
[2018-12-14] MEDS ORDERED: Albuterol/Ipratropium 3.0-0.5 MG/3 ML Neb Soln NEB ONE (18:22)
[2018-12-14] MEDS ORDERED: Albuterol 0.083% 2.5 MG/3 ML Neb Soln NEB ONE (18:22)
--- NOTE | 2018-12-14 18:47 | CRLCR ---
INDICATION: SOB. TECHNIQUE: Semiupright portable AP image. COMPARISON: None. FINDINGS: Lungs low in volume, clear. No pleural effusion. Mild cardiomegaly. Pulmonary veins grossly normal. No significant osseous abnormality. IMPRESSION: 1. Lungs low in volume, clear. 2. Mild cardiomegaly. Dictated by John Lawrence MD @ Dec 14 2018 6:43PM Signed by Dr. John Lawrence @ Dec 14 2018 6:45PM
[2018-12-14] MEDS ORDERED: Furosemide 40 MG/4 ML VIAL IVPUSH STA (21:05)
[2018-12-14] MEDS ORDERED: methylPREDNISolone Sodium Succinate 125 MG/2 ML SDV IVPUSH ONE (21:12)
[2018-12-14] MEDS ORDERED: Sodium Chloride 0.9% 10 ML Syringe FLUSH PRN (21:56)
[2018-12-14] MEDS ORDERED: Albuterol/Ipratropium 3.0-0.5 MG/3 ML Neb Soln NEB PRN (22:03)
[2018-12-14] MEDS: cefTRIAXone 1 GM in Sodium Chloride 0.9% 50 ML IV SCH (23:37)
[2018-12-14] MEDS: Azithromycin 250 MG Tab PO SCH (23:37)
[2018-12-15] MEDS: Nystatin Crm 15 GM Tube TOP SCH ×3 (00:38→20:55)
--- NOTE | 2018-12-15 04:31 | HP ---
CHIEF COMPLAINT: Shortness of breath. HISTORY OF PRESENT ILLNESS: For the last 3 days, she has been having more problems with her breathing with shortness of breath. She does use supplemental oxygen at 2 L, but when they take it off it would decrease more than it would normally when she is at her baseline. She has had a cough that has been productive at times, it is usually worse in the morning, but she will cough more too when she lays down at night, and it sounds like she does have some orthopnea. Her son, who is her primary caregiver, is with her pretty much all the time states that her legs have been a little bit more swollen and he was wondering if she may be retaining more fluid. The patient has been ill for the last few days. No fever today when they brought her in, but was having worsening shortness of breath, yesterday did call in Ceftin, which has worked well for her in the past. She does have underlying COPD. Ambulance was called and did give her neb on the way and she did not really think that it made a lot of difference, was noted to have fever, still has been maintained on her 2 L per nasal cannula. Denies any chest pain. Otherwise, no other complaints. PAST MEDICAL HISTORY: 1. Type 2 diabetes mellitus. 2. Chronic kidney disease. 3. Stroke with left hemiparesis. 4. COPD. 5. Essential hypertension. 6. Hyperlipidemia. 7. Gastroesophageal reflux disease. 8. She has had a history of chickenpox and measles in the past. 9. She has had a fractured hip with surgical repair. 10.Cataract surgery. HOME MEDICATIONS: She was started on Ceftin. Allopurinol 100 mg daily. Aspirin 81 mg daily. Atorvastatin 10 mg at bedtime. Vitamin D3 of 2000 units daily. Plavix 75 mg daily. Famotidine 10 mg at bedtime. Furosemide 40 mg daily. Gabapentin 100 mg b.i.d., glipizide 10 mg daily, insulin 64 units of glargine insulin at bedtime, metoprolol 100 mg b.i.d., omega-3 fish oil, prednisone, topical triamcinolone. ALLERGIES: NO KNOWN DRUG ALLERGIES. SOCIAL HISTORY: She is a nonsmoker. FAMILY HISTORY: Positive for diabetes and kidney problems. REVIEW OF SYSTEMS: Denies headaches, vision changes, upper respiratory symptoms. Has had a productive cough at times with shortness of breath. No chest pain. No nausea, vomiting, diarrhea, or constipation. No urinary problems reported. It sounds like she does have a redness in her jayne area from yeast infection. She has had increasing swelling in her legs, but she normally has some swelling at baseline, but according to her son and also myself that I have seen her many times that it looks like she does more swelling in her legs, has had some weeping from her left leg. No other skin problems reported. Neurologic, she does have the left hemiparesis from her previous stroke. OBJECTIVE: VITAL SIGNS: Temperature 37.9, pulse 60s to 80s, blood pressure 141/62, respirations 20 to 27, and O2 saturation 95% on 2 L. HEENT: Pharynx is clear. NECK: Supple. No adenopathy, thyromegaly, JVD, or carotid bruits. LUNGS: Decreased in the bases, but otherwise clear. HEART: Regular without murmurs. ABDOMEN: Obese, soft, and nontender. No mass or organomegaly palpated. EXTREMITIES: She does have pitting edema bilaterally, which is worse than her baseline. She does have open area with some slight weeping of serous straw-colored fluid medially. NEUROLOGIC: She does have the left-sided weakness. IMAGING: Chest x-ray; other than some slight cardiomegaly unremarkable. LABORATORY DATA: Urinalysis was unremarkable. White count 11.0, hemoglobin 10.5, platelets 207,000 with 74% neutrophils, 14% lymphocytes, 10% monocytes. Sodium 143, potassium 3.8, BUN is 47, creatinine 1.9, estimated GFR 25, glucose 79, lactic acid 1.0. Liver functions were normal. Troponin was less than 0.017. C-reactive protein was elevated at 2.8. BNP was elevated at 532. ASSESSMENT: 1. Shortness of breath, which I think at this point is multifactorial. She did run a fever when she came in, although it was when she took her hearing aid out, so it might have been a little bit artificially high. It looks like she may have an exacerbation of chronic obstructive pulmonary disease. The patient has been started on IV Solu- Medrol in the emergency room, which we will continue, but I also feel that she is retaining more fluid. The patient has received 40 mg IV Lasix in the ER, which we will re-evaluate in the morning. But question if she has fluid overload with congestive heart failure and question if she also has infectious component, so I did start her on IV Rocephin and oral Zithromax in the meantime, continue with DuoNeb. 2. Type 2 diabetes mellitus q.i.d. Accu-Cheks, consistent carbohydrate diet, 2 g sodium diet. 3. Chronic kidney disease. 4. Underlying chronic obstructive pulmonary disease. We will admit her under inpatient status, transfer her care to the hospitalist in the morning. Gadiel Marin MD /[id number]
[2018-12-15] MEDS ORDERED: methylPREDNISolone Sodium Succinate 125 MG/2 ML SDV IVPUSH SCH ×3 (05:00→14:00)
[2018-12-15] MEDS: Allopurinol 100 MG Tab PO SCH (09:17)
[2018-12-15] MEDS: Metoprolol Tartrate 50 MG Tab PO SCH ×2 (09:17→20:57)
[2018-12-15] MEDS: Gabapentin 100 MG Cap PO SCH ×2 (09:17→20:55)
[2018-12-15] MEDS: glipiZIDE 5 MG Tab.ER PO SCH (09:17)
[2018-12-15] MEDS: Aspirin 81 MG Tab.Chew PO SCH (09:17)
[2018-12-15] MEDS: Albuterol/Ipratropium 3.0-0.5 MG/3 ML Neb Soln NEB SCH ×3 (10:47→21:06)
[2018-12-15] MEDS ORDERED: Insulin Lispro 100 Unit/ML 3 ML KwikPen SUBCUT ONE (11:24)
--- NOTE | 2018-12-15 12:17 | PCM.PN ---
- General Info Date of Service: 12/15/18 Subjective Update: There were no acute events overnight following admission. The patient is feeling better today with less shortness of breath. Occasional cough. No fevers since she was in the emergency room last night. She thinks the swelling in her legs is a little better and probably back to normal. She was very weak yesterday but anxious her strength is improving today. Appetite improved this morning. Blood sugars have been on the rise with her steroids. Functional Status: Reports: Pain Controlled, Tolerating Diet - Review of Systems General: Reports: Fever, Weakness Pulmonary: Reports: Shortness of Breath Cardiovascular: Reports: Edema - Patient Data Vitals - Most Recent: Last Vital Signs Temp 36.0 C 12/15/18 07: Pulse 59 L 12/15/18 10:48 Resp 18 12/15/18 07:19 BP 130/54 L 12/15/18 09:17 Pulse Ox 97 12/15/18 10:48 Weight - Most Recent: 118.8 kg I&O - Last 24 Hours: Intake & Output 12/14/18 12/15/18 12/15/18 22:59 06:59 14:59 Intake Total 300 540 Output Total 300 2400 Balance -300 -2100 540 Lab Results Last 24 Hours: Laboratory Results - last 24 hr 12/14/18 12/14/18 12/14/18 Range/Units 17:40 17:40 17:40 WBC 11.0 (4.5-11.0) K/uL RBC 4.03 (3.30-5.50) M/uL Hgb 10.5 L D (12.0-15.0) g/dL Hct 36.6 (36.0-48.0) % MCV 91 (80-98) fL MCH 26 L (27-31) pg MCHC 29 L (32-36) % Plt Count 207 (150-400) K/uL Neut % (Auto) 74 H (36-66) % Lymph % (Auto) 14 L (24-44) % [place] % (Auto) 10 H (2-6) % Eos % (Auto) 2 (2-4) % Baso % (Auto) 0 (0-1) % Sodium 143 (140-148) mmol/L Potassium 3.8 (3.6-5.2) mmol/L Chloride 101 (100-108) mmol/L Carbon Dioxide 37 H (21-32) mmol/L Anion Gap 8.8 (5.0-14.0) mmol/L BUN 47 H (7-18) mg/dL Creatinine 1.9 H (0.6-1.0) mg/dL Est Cr Clr Drug Dosing 20.05 mL/min Estimated GFR (MDRD) 25 L (>60) Glucose 79 (74-106) mg/dL Lactic Acid 1.0 (0.4-2.0) mmol/L Calcium 9.1 D (8.5-10.1) mg/dL Total Bilirubin 0.6 (0.2-1.0) mg/dL AST 14 L (15-37) U/L ALT 11 L (12-78) U/L Alkaline Phosphatase 95 (46-116) U/L Troponin I (0.000-0.056) ng/mL C-Reactive Protein 2.80 H (0.0-0.3) mg/dL NT-Pro-B Natriuret Pep (5-450) pg/mL Total Protein 6.6 (6.4-8.2) g/dL Albumin 2.5 L (3.4-5.0) g/dL Globulin 4.1 H (2.3-3.5) g/dL Albumin/Globulin Ratio 0.6 L (1.2-2.2) Urine Color Urine Appearance Urine pH (4.5-8.0) Ur Specific [place] (1.008-1.030) Urine Protein (NEGATIVE) mg/dL Urine Glucose (UA) (NEGATIVE) mg/dL Urine Ketones (NEGATIVE) mg/dL Urine Occult Blood (NEGATIVE) Urine Nitrite (NEGATIVE) Urine Bilirubin (NEGATIVE) Urine Urobilinogen (NORMAL) mg/dL Ur Leukocyte Esterase (NEGATIVE) Urine RBC (0-5) Urine WBC (0-5) Ur Epithelial Cells Amorphous Sediment Urine Bacteria Urine Mucus 12/14/18 12/14/18 12/14/18 Range/Units 17:40 18:50 21:11 WBC (4.5-11.0) K/uL RBC (3.30-5.50) M/uL Hgb (12.0-15.0) g/dL Hct (36.0-48.0) % MCV (80-98) fL MCH (27-31) pg MCHC (32-36) % Plt Count (150-400) K/uL Neut % (Auto) (36-66) % Lymph % (Auto) (24-44) % [place] % (Auto) (2-6) % Eos % (Auto) (2-4) % Baso % (Auto) (0-1) % Sodium (140-148) mmol/L Potassium (3.6-5.2) mmol/L Chloride (100-108) mmol/L Carbon Dioxide (21-32) mmol/L Anion Gap (5.0-14.0) mmol/L BUN (7-18) mg/dL Creatinine (0.6-1.0) mg/dL Est Cr Clr Drug Dosing mL/min Estimated GFR (MDRD) (>60) Glucose (74-106) mg/dL Lactic Acid (0.4-2.0) mmol/L Calcium (8.5-10.1) mg/dL Total Bilirubin (0.2-1.0) mg/dL AST (15-37) U/L ALT (12-78) U/L Alkaline Phosphatase (46-116) U/L Troponin I < 0.017 (0.000-0.056) ng/mL C-Reactive Protein (0.0-0.3) mg/dL NT-Pro-B Natriuret Pep 532 H (5-450) pg/mL Total Protein (6.4-8.2) g/dL Albumin (3.4-5.0) g/dL Globulin (2.3-3.5) g/dL Albumin/Globulin Ratio (1.2-2.2) Urine Color Yellow Urine Appearance Slightly cloudy Urine pH 5.0 (4.5-8.0) Ur Specific [place] 1.015 (1.008-1.030) Urine Protein Trace (NEGATIVE) mg/dL Urine Glucose (UA) Normal (NEGATIVE) mg/dL Urine Ketones Negative (NEGATIVE) mg/dL Urine Occult Blood Negative (NEGATIVE) Urine Nitrite Negative (NEGATIVE) Urine Bilirubin Negative (NEGATIVE) Urine Urobilinogen Normal (NORMAL) mg/dL Ur Leukocyte Esterase Negative (NEGATIVE) Urine RBC Not seen (0-5) Urine WBC Not seen (0-5) Ur Epithelial Cells Moderate Amorphous Sediment Few Urine Bacteria Few Urine Mucus Not seen 12/15/18 12/15/18 Range/Units 05:46 05:46 WBC 10.1 (4.5-11.0) K/uL RBC 4.21 (3.30-5.50) M/uL Hgb 10.7 L (12.0-15.0) g/dL Hct 38.2 (36.0-48.0) % MCV 91 (80-98) fL MCH 25 L (27-31) pg MCHC 28 L (32-36) % Plt Count 199 (150-400) K/uL Neut % (Auto) (36-66) % Lymph % (Auto) (24-44) % [place] % (Auto) (2-6) % Eos % (Auto) (2-4) % Baso % (Auto) (0-1) % Sodium 141 (140-148) mmol/L Potassium 4.5 (3.6-5.2) mmol/L Chloride 100 (100-108) mmol/L Carbon Dioxide 36 H (21-32) mmol/L Anion Gap 9.5 (5.0-14.0) mmol/L BUN 41 H (7-18) mg/dL Creatinine 1.7 H (0.6-1.0) mg/dL Est Cr Clr Drug Dosing 22.41 mL/min Estimated GFR (MDRD) 29 L (>60) Glucose 251 H (74-106) mg/dL Lactic Acid (0.4-2.0) mmol/L Calcium 9.1 (8.5-10.1) mg/dL Total Bilirubin (0.2-1.0) mg/dL AST (15-37) U/L ALT (12-78) U/L Alkaline Phosphatase (46-116) U/L Troponin I (0.000-0.056) ng/mL C-Reactive Protein (0.0-0.3) mg/dL NT-Pro-B Natriuret Pep (5-450) pg/mL Total Protein (6.4-8.2) g/dL Albumin (3.4-5.0) g/dL Globulin (2.3-3.5) g/dL Albumin/Globulin Ratio (1.2-2.2) Urine Color Urine Appearance Urine pH (4.5-8.0) Ur Specific [place] (1.008-1.030) Urine Protein (NEGATIVE) mg/dL Urine Glucose (UA) (NEGATIVE) mg/dL Urine Ketones (NEGATIVE) mg/dL Urine Occult Blood (NEGATIVE) Urine Nitrite (NEGATIVE) Urine Bilirubin (NEGATIVE) Urine Urobilinogen (NORMAL) mg/dL Ur Leukocyte Esterase (NEGATIVE) Urine RBC (0-5) Urine WBC (0-5) Ur Epithelial Cells Amorphous Sediment Urine Bacteria Urine Mucus Med Orders - Current: Current Medications Albuterol/Ipratropium (Duoneb 3.0-0.5 Mg/3 Ml) 3 ml NEB QIDRT [facility] Last Admin: 12/15/18 10:47 Dose: 3 ml Allopurinol (Zyloprim) 100 mg PO DAILY [facility] Last Admin: 12/15/18 09:17 Dose: 100 mg Aspirin (Aspirin) 81 mg PO DAILY [facility] Last Admin: 12/15/18 09:17 Dose: 81 mg Atorvastatin Calcium (Lipitor) 10 mg PO BEDTIME [facility] Azithromycin (Zithromax) 500 mg PO Q24H [facility] Last Admin: 12/14/18 23:37 Dose: 500 mg Clopidogrel Bisulfate (Plavix) 75 mg PO BEDTIME [facility] Famotidine (Pepcid) 10 mg PO BEDTIME [facility] Gabapentin (Neurontin) 100 mg PO BID [facility] Last Admin: 12/15/18 09:17 Dose: 100 mg Glipizide (Glucotrol Xl) 10 mg PO DAILY [facility] Last Admin: 12/15/18 09:17 Dose: 10 mg Ceftriaxone Sodium 1 gm/ (Sodium Chloride) 50 mls @ 100 mls/hr IV Q24H [facility] Last Admin: 12/14/18 23:37 Dose: 100 mls/hr Insulin Glargine (Lantus Solostar) 64 units SUBCUT BEDTIME [facility] Insulin Human Lispro (Humalog) 0 unit SUBCUT QIDACANDBED [facility]; Protocol Metoprolol Tartrate (Lopressor) 100 mg PO BID [facility] Last Admin: 12/15/18 09:17 Dose: 100 mg Nystatin (Nystatin Crm) 0 gm TOP BID [facility] Last Admin: 12/15/18 09:16 Dose: 1 applic Sodium Chloride (Saline Flush) 10 ml FLUSH ASDIRECTED PRN PRN Reason: Keep Vein Open Discontinued Medications Acetaminophen (Tylenol) 650 mg PO NOW ONE Stop: 12/14/18 17:50 Last Admin: 12/14/18 17:58 Dose: 650 mg Albuterol (Proventil Neb Soln) 2.5 mg NEB ONETIME ONE Stop: 12/14/18 18:23 Last Admin: 12/14/18 18:30 Dose: 2.5 mg Albuterol/Ipratropium (Duoneb 3.0-0.5 Mg/3 Ml) 3 ml NEB ONETIME ONE Stop: 12/14/18 18:23 Last Admin: 12/14/18 18:30 Dose: 3 ml Albuterol/Ipratropium (Duoneb 3.0-0.5 Mg/3 Ml) 3 ml NEB Q4H PRN PRN Reason: Shortness of Breath Furosemide (Lasix) 40 mg IVPUSH NOW STA Stop: 12/14/18 21:06 Last Admin: 12/14/18 21:27 Dose: 40 mg Lactated Ringer's (Ringers, Lactated) 1,000 mls @ 500 mls/hr IV ASDIRECTED [facility] Last Admin: 12/14/18 21:27 Dose: 500 mls/hr Insulin Human Lispro (Humalog) 5 unit SUBCUT ONETIME ONE Stop: 12/15/18 11:25 Last Admin: 12/15/18 11:40 Dose: 5 units Methylprednisolone Sodium Succinate (Solu-Medrol) 125 mg IVPUSH ONETIME ONE Stop: 12/14/18 21:13 Last Admin: 12/14/18 21:26 Dose: 125 mg Methylprednisolone Sodium Succinate (Solu-Medrol) 125 mg IVPUSH Q8H [facility] Last Admin: 12/15/18 06:01 Dose: 125 mg Methylprednisolone Sodium Succinate (Solu-Medrol) 125 mg IVPUSH Q8H [facility] Methylprednisolone Sodium Succinate (Solu-Medrol) 62.5 mg IVPUSH Q8H [facility] - Exam Quality Assessment: Supplemental Oxygen General: Alert, Oriented, Cooperative, No Acute Distress Lungs: Clear to Auscultation, Normal Respiratory Effort Cardiovascular: Regular Rate, Regular Rhythm GI/Abdominal Exam: Soft, No Distention Extremities: Pedal Edema. No: Increased Warmth Skin: Warm, Dry Psy/Mental Status: Alert, Normal Affect - Problem List Review Problem List Initiated/Reviewed/Updated: Yes - My Orders Last 24 Hours: My Active Orders 12/15/18 10:15 PT Evaluation and Treatment [CONS] Routine 12/15/18 11:00 Albuterol/Ipratropium [DuoNeb 3.0-0.5 MG/3 ML] 3 ml NEB QIDRT 12/15/18 11:24 Communication Order [RC] PRN Communication Order [RC] PRN Diabetes Education [RC] Click to Edit Notify Provider [RC] PRN 12/15/18 12:15 DC Alexander Catheter [Urinary Catheter Removal] [RC] Per Unit Routine 12/15/18 17:00 Insulin Lispro [HumaLOG] See Protocol SUBCUT QIDACANDBED 12/16/18 05:00 BASIC METABOLIC PANEL,BMP [CHEM] Timed CBC W/O DIFF,HEMOGRAM [HEME] Timed (1) - Plan Plan:: ASSESSMENT AND PLAN - Acute bronchitis - most likely explanation for fever and increased shortness of breath. No impressive evidence for congestive heart failure. Examination is relatively benign today and there is no evidence for COPD exacerbation. Oxygenation is stable on her usual 2 L of oxygen. -Continue antibiotics -Discontinue steroids -Scheduled nebulizers -Supplement oxygen Insulin-dependent diabetes mellitus with hyperglycemia - hyperglycemia secondary to steroids. -Discontinuing steroids -Continue long-acting insulin -Medium dose sliding scale insulin Stage III chronic kidney disease - creatinine slightly better than the time of admission and back to baseline. Maintenance issues - - DVT prophylaxis - SCD - GI prophylaxis - not indicated - Nutrition - diabetic - Alexander catheter - placed in the emergency room but will be removed this morning Disposition - I would anticipate discharge home after the hospital stay Redd Clement M.D.
[2018-12-15] MEDS: Insulin Lispro 100 Unit/ML 3 ML KwikPen SUBCUT SCH ×2 (17:18→21:07)
[2018-12-15] MEDS: Clopidogrel 75 MG Tab PO SCH (20:55)
[2018-12-15] MEDS: Famotidine 20 MG Tab PO SCH (20:55)
[2018-12-15] MEDS: atorvaSTATin 10 MG Tab PO SCH (20:56)
[2018-12-15] MEDS ORDERED: Insulin Glargine,Human Rec. Analog 100 Units/ML 3 ML Pen SUBCUT SCH (21:00)
[2018-12-15] MEDS ORDERED: Insulin Lispro 100 Unit/ML 3 ML KwikPen SUBCUT STA (21:01)
[2018-12-15] MEDS: Insulin Glargine,Human Rec. Analog 100 Units/ML 3 ML Pen SUBCUT SCH (21:09)
[2018-12-15] MEDS: Azithromycin 250 MG Tab PO SCH (22:00)
[2018-12-15] MEDS: cefTRIAXone 1 GM in Sodium Chloride 0.9% 50 ML IV SCH (22:31)
[2018-12-16] MEDS: Albuterol/Ipratropium 3.0-0.5 MG/3 ML Neb Soln NEB SCH ×4 (07:16→20:45)
[2018-12-16] MEDS: Insulin Lispro 100 Unit/ML 3 ML KwikPen SUBCUT SCH ×5 (08:20→20:55)
[2018-12-16] MEDS: glipiZIDE 5 MG Tab.ER PO SCH (08:24)
[2018-12-16] MEDS: Nystatin Crm 15 GM Tube TOP SCH ×2 (08:24→20:45)
[2018-12-16] MEDS: Metoprolol Tartrate 50 MG Tab PO SCH ×2 (08:24→20:49)
[2018-12-16] MEDS: Aspirin 81 MG Tab.Chew PO SCH (08:25)
[2018-12-16] MEDS: Gabapentin 100 MG Cap PO SCH ×2 (08:25→20:45)
[2018-12-16] MEDS: Allopurinol 100 MG Tab PO SCH (08:25)
--- NOTE | 2018-12-16 10:50 | PCM.PN ---
- General Info Date of Service: 12/16/18 Subjective Update: Patient had hyperglycemia with blood sugars as high as 500 yesterday but otherwise there were no acute events. Blood sugars have improved this morning but remains moderately elevated. She is feeling better today with less shortness of breath and thinks she's back to her baseline as far as her breathing. No complaints of abdominal pain or nausea. She remains weak and requires assistance to get from the bed to the commode. She is interested in a trial of walking. Functional Status: Reports: Pain Controlled, Tolerating Diet - Review of Systems General: Reports: Weakness. Denies: Fever Pulmonary: Denies: Shortness of Breath - Patient Data Vitals - Most Recent: Last Vital Signs Temp 36.2 C 12/16/18 08:13 Pulse 61 12/16/18 08:24 Resp 20 12/16/18 08:13 BP 150/57 H 12/16/18 08:24 Pulse Ox 96 12/16/18 08:13 Weight - Most Recent: 118.8 kg I&O - Last 24 Hours: Intake & Output 12/15/18 12/16/18 12/16/18 22:59 06:59 14:59 Intake Total 415 240 Output Total 700 425 Balance -285 240 -425 Lab Results Last 24 Hours: Laboratory Results - last 24 hr 12/16/18 12/16/18 Range/Units 04:45 04:45 WBC 12.7 H (4.5-11.0) K/uL RBC 3.87 (3.30-5.50) M/uL Hgb 9.8 L (12.0-15.0) g/dL Hct 34.2 L (36.0-48.0) % MCV 88 (80-98) fL MCH 25 L (27-31) pg MCHC 29 L (32-36) % Plt Count 213 (150-400) K/uL Sodium 137 L (140-148) mmol/L Potassium 4.4 (3.6-5.2) mmol/L Chloride 98 L (100-108) mmol/L Carbon Dioxide 38 H (21-32) mmol/L Anion Gap 5.4 (5.0-14.0) mmol/L BUN 53 H (7-18) mg/dL Creatinine 1.9 H (0.6-1.0) mg/dL Est Cr Clr Drug Dosing 20.05 mL/min Estimated GFR (MDRD) 25 L (>60) Glucose 328 H (74-106) mg/dL Calcium 8.9 (8.5-10.1) mg/dL [facility]andal Results Last 24 Hours: Microbiology 12/14/18 18:50 Urine Culture - Preliminary Urine, Catheterized NO GROWTH AFTER 1 DAY 12/14/18 17:40 Aerobic Blood Culture - Preliminary Blood - Venous NO GROWTH AFTER 1 DAY Anaerobic Blood Culture - Preliminary NO GROWTH AFTER 1 DAY 12/14/18 17:40 Aerobic Blood Culture - Preliminary Blood - Venous - Lab Draw NO GROWTH AFTER 1 DAY Anaerobic Blood Culture - Preliminary NO GROWTH AFTER 1 DAY Med Orders - Current: Current Medications Albuterol/Ipratropium (Duoneb 3.0-0.5 Mg/3 Ml) 3 ml NEB QIDRT [facility] Last Admin: 12/16/18 07:16 Dose: 3 ml Allopurinol (Zyloprim) 100 mg PO DAILY [facility] Last Admin: 12/16/18 08:25 Dose: 100 mg Aspirin (Aspirin) 81 mg PO DAILY [facility] Last Admin: 12/16/18 08:25 Dose: 81 mg Atorvastatin Calcium (Lipitor) 10 mg PO BEDTIME [facility] Last Admin: 12/15/18 20:56 Dose: 10 mg Azithromycin (Zithromax) 500 mg PO Q24H [facility] Last Admin: 12/15/18 22:00 Dose: 500 mg Clopidogrel Bisulfate (Plavix) 75 mg PO BEDTIME [facility] Last Admin: 12/15/18 20:55 Dose: 75 mg Famotidine (Pepcid) 10 mg PO BEDTIME [facility] Last Admin: 12/15/18 20:55 Dose: 10 mg Gabapentin (Neurontin) 100 mg PO BID [facility] Last Admin: 12/16/18 08:25 Dose: 100 mg Glipizide (Glucotrol Xl) 10 mg PO DAILY [facility] Last Admin: 12/16/18 08:24 Dose: 10 mg Ceftriaxone Sodium 1 gm/ (Sodium Chloride) 50 mls @ 100 mls/hr IV Q24H [facility] Last Admin: 12/15/18 22:31 Dose: 100 mls/hr Insulin Glargine (Lantus Solostar) 64 units SUBCUT BEDTIME [facility] Last Admin: 12/15/18 21:09 Dose: 64 units Insulin Human Lispro (Humalog) 0 unit SUBCUT QIDACANDBED [facility]; Protocol Last Admin: 12/16/18 08:20 Dose: 6 units Metoprolol Tartrate (Lopressor) 100 mg PO BID [facility] Last Admin: 12/16/18 08:24 Dose: 100 mg Nystatin (Nystatin Crm) 0 gm TOP BID [facility] Last Admin: 12/16/18 08:24 Dose: 1 applic Sodium Chloride (Saline Flush) 10 ml FLUSH ASDIRECTED PRN PRN Reason: Keep Vein Open Discontinued Medications Acetaminophen (Tylenol) 650 mg PO NOW ONE Stop: 12/14/18 17:50 Last Admin: 12/14/18 17:58 Dose: 650 mg Albuterol (Proventil Neb Soln) 2.5 mg NEB ONETIME ONE Stop: 12/14/18 18:23 Last Admin: 12/14/18 18:30 Dose: 2.5 mg Albuterol/Ipratropium (Duoneb 3.0-0.5 Mg/3 Ml) 3 ml NEB ONETIME ONE Stop: 12/14/18 18:23 Last Admin: 12/14/18 18:30 Dose: 3 ml Albuterol/Ipratropium (Duoneb 3.0-0.5 Mg/3 Ml) 3 ml NEB Q4H PRN PRN Reason: Shortness of Breath Furosemide (Lasix) 40 mg IVPUSH NOW STA Stop: 12/14/18 21:06 Last Admin: 12/14/18 21:27 Dose: 40 mg Lactated Ringer's (Ringers, Lactated) 1,000 mls @ 500 mls/hr IV ASDIRECTED [facility] Last Admin: 12/14/18 21:27 Dose: 500 mls/hr Insulin Human Lispro (Humalog) 5 unit SUBCUT ONETIME ONE Stop: 12/15/18 11:25 Last Admin: 12/15/18 11:40 Dose: 5 units Insulin Human Lispro (Humalog) 0 unit SUBCUT ONETIME [facility] Stop: 12/15/18 21:02 Last Admin: 12/15/18 21:15 Dose: 15 units Methylprednisolone Sodium Succinate (Solu-Medrol) 125 mg IVPUSH ONETIME ONE Stop: 12/14/18 21:13 Last Admin: 12/14/18 21:26 Dose: 125 mg Methylprednisolone Sodium Succinate (Solu-Medrol) 125 mg IVPUSH Q8H [facility] Last Admin: 12/15/18 06:01 Dose: 125 mg Methylprednisolone Sodium Succinate (Solu-Medrol) 125 mg IVPUSH Q8H [facility] Methylprednisolone Sodium Succinate (Solu-Medrol) 62.5 mg IVPUSH Q8H [facility] - Exam Quality Assessment: Supplemental Oxygen General: Alert, Oriented, Cooperative, No Acute Distress Lungs: Clear to Auscultation, Normal Respiratory Effort Cardiovascular: Regular Rate, Regular Rhythm GI/Abdominal Exam: Soft, No Distention Extremities: Pedal Edema (mild but improved). No: Increased Warmth Skin: Warm, Dry Psy/Mental Status: Alert, Normal Affect - Problem List Review Problem List Initiated/Reviewed/Updated: Yes - My Orders Last 24 Hours: My Active Orders 12/15/18 10:15 PT Evaluation and Treatment [CONS] Routine 12/15/18 11:00 Albuterol/Ipratropium [DuoNeb 3.0-0.5 MG/3 ML] 3 ml NEB QIDRT 12/15/18 11:24 Communication Order [RC] PRN Communication Order [RC] PRN Diabetes Education [RC] Click to Edit Notify Provider [RC] PRN 12/15/18 13:33 Antiembolic Devices [RC] .Routine SCD [Sequential Compression Device] [OM.PC] Routine 12/15/18 17:00 Insulin Lispro [HumaLOG] See Protocol SUBCUT QIDACANDBED 12/16/18 10:49 Ambulate [RC] QID 12/17/18 05:00 BASIC METABOLIC PANEL,BMP [CHEM] Timed CBC W/O DIFF,HEMOGRAM [HEME] Timed (1) - Plan Plan:: ASSESSMENT AND PLAN - Acute bronchitis - most likely explanation for fever and increased shortness of breath. No impressive evidence for congestive heart failure. Examination remains benign with clear lungs. On baseline home oxygen level. No complaints of shortness of breath. No fevers. She remains very weak but otherwise is doing well. -Continue antibiotics -Discontinue steroids -Scheduled nebulizers -Supplement oxygen -Physical therapy to help with the weakness Insulin-dependent diabetes mellitus with hyperglycemia - hyperglycemia secondary to steroids has improved overnight but remains modestly elevated. -Continue long-acting insulin -Medium dose sliding scale insulin Stage III chronic kidney disease - creatinine stable and near baseline. Maintenance issues - - DVT prophylaxis - SCD - GI prophylaxis - not indicated - Nutrition - diabetic - Alexander catheter - removed yesterday Disposition - I would anticipate discharge home after the hospital stay in 1 or maybe 2 days Redd Clmeent M.D.
[2018-12-16] MEDS: Famotidine 20 MG Tab PO SCH (20:45)
[2018-12-16] MEDS: Clopidogrel 75 MG Tab PO SCH (20:46)
[2018-12-16] MEDS: atorvaSTATin 10 MG Tab PO SCH (20:47)
[2018-12-16] MEDS: Insulin Glargine,Human Rec. Analog 100 Units/ML 3 ML Pen SUBCUT SCH (20:54)
[2018-12-16] MEDS: cefTRIAXone 1 GM in Sodium Chloride 0.9% 50 ML IV SCH (22:52)
[2018-12-16] MEDS: Azithromycin 250 MG Tab PO SCH (22:52)
[2018-12-17] MEDS: Albuterol/Ipratropium 3.0-0.5 MG/3 ML Neb Soln NEB SCH ×4 (07:14→20:54)
[2018-12-17] MEDS: Insulin Lispro 100 Unit/ML 3 ML KwikPen SUBCUT SCH ×4 (07:39→21:07)
[2018-12-17] MEDS: Aspirin 81 MG Tab.Chew PO SCH (08:52)
[2018-12-17] MEDS: glipiZIDE 5 MG Tab.ER PO SCH (08:52)
[2018-12-17] MEDS: Metoprolol Tartrate 50 MG Tab PO SCH ×2 (08:52→20:57)
[2018-12-17] MEDS: Gabapentin 100 MG Cap PO SCH ×2 (08:53→20:59)
[2018-12-17] MEDS: Nystatin Crm 15 GM Tube TOP SCH ×2 (08:53→21:00)
[2018-12-17] MEDS: Allopurinol 100 MG Tab PO SCH (08:53)
--- NOTE | 2018-12-17 14:50 | PCM.PN ---
- General Info Date of Service: 12/17/18 Subjective Update: Ms. Moreno is an 83-year-old woman with oxygen-dependent COPD, she was admitted through the emergency department a few days ago with increased shortness of breath secondary to COPD exacerbation and underlying bronchitis. She has improved since admission with less shortness of breath but is not yet back to baseline. Vital signs have been stable and she has remained afebrile. Her main somewhat weak and unsteady with ambulation, requires help for transfers. Functional Status: Reports: Pain Controlled, Tolerating Diet, Urinating - Review of Systems General: Reports: Weakness. Denies: Fever, Chills Pulmonary: Reports: Shortness of Breath, Cough, Wheezing. Denies: Pleuritic Chest Pain, Sputum, Hemoptysis Cardiovascular: Reports: Dyspnea on Exertion. Denies: Chest Pain, Palpitations , Orthopnea, PND, Edema, Lightheadedness Gastrointestinal: Reports: No Symptoms - Patient Data Vitals - Most Recent: Last Vital Signs Temp 97.7 F 12/17/18 14:40 Pulse 67 12/17/18 14:40 Resp 18 12/17/18 14:40 BP 117/44 L 12/17/18 14:40 Pulse Ox 95 12/17/18 14:40 Weight - Most Recent: 261 lb 14.546 oz I&O - Last 24 Hours: Intake & Output 12/16/18 12/17/18 12/17/18 22:59 06:59 14:59 Intake Total 590 620 Balance 590 620 Lab Results Last 24 Hours: Laboratory Results - last 24 hr 12/17/18 12/17/18 Range/Units 04:30 04:30 WBC 10.5 (4.5-11.0) K/uL RBC 4.03 (3.30-5.50) M/uL Hgb 10.1 L (12.0-15.0) g/dL Hct 36.2 (36.0-48.0) % MCV 90 (80-98) fL MCH 25 L (27-31) pg MCHC 28 L (32-36) % Plt Count 207 (150-400) K/uL Sodium 140 (140-148) mmol/L Potassium 4.4 (3.6-5.2) mmol/L Chloride 101 (100-108) mmol/L Carbon Dioxide 38 H (21-32) mmol/L Anion Gap 5.4 (5.0-14.0) mmol/L BUN 49 H (7-18) mg/dL Creatinine 1.6 H (0.6-1.0) mg/dL Est Cr Clr Drug Dosing 23.81 mL/min Estimated GFR (MDRD) 31 L (>60) Glucose 122 H (74-106) mg/dL Calcium 8.6 (8.5-10.1) mg/dL Randal Results Last 24 Hours: Microbiology 12/14/18 18:50 Urine Culture - Final Urine, Catheterized NO GROWTH AFTER 2 DAYS 12/14/18 17:40 Aerobic Blood Culture - Preliminary Blood - Venous NO GROWTH AFTER 2 DAYS Anaerobic Blood Culture - Preliminary NO GROWTH AFTER 2 DAYS 12/14/18 17:40 Aerobic Blood Culture - Preliminary Blood - Venous - Lab Draw NO GROWTH AFTER 2 DAYS Anaerobic Blood Culture - Preliminary NO GROWTH AFTER 2 DAYS Med Orders - Current: Current Medications Albuterol/Ipratropium (Duoneb 3.0-0.5 Mg/3 Ml) 3 ml NEB QIDRT [facility] Last Admin: 12/17/18 14:22 Dose: 3 ml Allopurinol (Zyloprim) 100 mg PO DAILY [facility] Last Admin: 12/17/18 08:53 Dose: 100 mg Aspirin (Aspirin) 81 mg PO DAILY [facility] Last Admin: 12/17/18 08:52 Dose: 81 mg Atorvastatin Calcium (Lipitor) 10 mg PO BEDTIME [facility] Last Admin: 12/16/18 20:47 Dose: 10 mg Clopidogrel Bisulfate (Plavix) 75 mg PO BEDTIME [facility] Last Admin: 12/16/18 20:46 Dose: 75 mg Famotidine (Pepcid) 10 mg PO BEDTIME [facility] Last Admin: 12/16/18 20:45 Dose: 10 mg Gabapentin (Neurontin) 100 mg PO BID [facility] Last Admin: 12/17/18 08:53 Dose: 100 mg Glipizide (Glucotrol Xl) 10 mg PO DAILY [facility] Last Admin: 12/17/18 08:52 Dose: 10 mg Insulin Glargine (Lantus Solostar) 64 units SUBCUT BEDTIME [facility] Last Admin: 12/16/18 20:54 Dose: 64 units Insulin Human Lispro (Humalog) 0 unit SUBCUT QIDACANDBED [facility]; Protocol Last Admin: 12/17/18 12:45 Dose: 2 units Metoprolol Tartrate (Lopressor) 100 mg PO BID [facility] Last Admin: 12/17/18 08:52 Dose: 100 mg Nystatin (Nystatin Crm) 0 gm TOP BID [facility] Last Admin: 12/17/18 08:53 Dose: 1 applic Sodium Chloride (Saline Flush) 10 ml FLUSH ASDIRECTED PRN PRN Reason: Keep Vein Open Discontinued Medications Acetaminophen (Tylenol) 650 mg PO NOW ONE Stop: 12/14/18 17:50 Last Admin: 12/14/18 17:58 Dose: 650 mg Albuterol (Proventil Neb Soln) 2.5 mg NEB ONETIME ONE Stop: 12/14/18 18:23 Last Admin: 12/14/18 18:30 Dose: 2.5 mg Albuterol/Ipratropium (Duoneb 3.0-0.5 Mg/3 Ml) 3 ml NEB ONETIME ONE Stop: 12/14/18 18:23 Last Admin: 12/14/18 18:30 Dose: 3 ml Albuterol/Ipratropium (Duoneb 3.0-0.5 Mg/3 Ml) 3 ml NEB Q4H PRN PRN Reason: Shortness of Breath Azithromycin (Zithromax) 500 mg PO Q24H [facility] Last Admin: 12/16/18 22:52 Dose: 500 mg Furosemide (Lasix) 40 mg IVPUSH NOW STA Stop: 12/14/18 21:06 Last Admin: 12/14/18 21:27 Dose: 40 mg Lactated Ringer's (Ringers, Lactated) 1,000 mls @ 500 mls/hr IV ASDIRECTED [facility] Last Admin: 12/14/18 21:27 Dose: 500 mls/hr Ceftriaxone Sodium 1 gm/ (Sodium Chloride) 50 mls @ 100 mls/hr IV Q24H [facility] Last Admin: 12/16/18 22:52 Dose: 100 mls/hr Insulin Human Lispro (Humalog) 5 unit SUBCUT ONETIME ONE Stop: 12/15/18 11:25 Last Admin: 12/15/18 11:40 Dose: 5 units Insulin Human Lispro (Humalog) 0 unit SUBCUT ONETIME STA Stop: 12/15/18 21:02 Last Admin: 12/15/18 21:15 Dose: 15 units Methylprednisolone Sodium Succinate (Solu-Medrol) 125 mg IVPUSH ONETIME ONE Stop: 12/14/18 21:13 Last Admin: 12/14/18 21:26 Dose: 125 mg Methylprednisolone Sodium Succinate (Solu-Medrol) 125 mg IVPUSH Q8H [facility] Last Admin: 12/15/18 06:01 Dose: 125 mg Methylprednisolone Sodium Succinate (Solu-Medrol) 125 mg IVPUSH Q8H [facility] Methylprednisolone Sodium Succinate (Solu-Medrol) 62.5 mg IVPUSH Q8H [facility] - Exam Quality Assessment: Supplemental Oxygen, DVT Prophylaxis General: Alert, Oriented, Cooperative, Mild Distress Lungs: Decreased Breath Sounds, Wheezing. No: Rales, Rhonchi, Rub Cardiovascular: Regular Rate, Regular Rhythm, No Murmurs GI/Abdominal Exam: Soft, Non-Tender, No Organomegaly, No Distention Extremities: Non-Tender, No Pedal Edema - Problem List Review Problem List Initiated/Reviewed/Updated: Yes - My Orders Last 24 Hours: My Active Orders 12/17/18 14:45 Doxycycline [Vibramycin] 100 mg PO Q12H 12/17/18 15:00 Lactobacillus Rhamnosus GG [Culturelle] 1 cap PO BID - Plan Plan:: ASSESSMENT AND PLAN - Acute bronchitis/COPD exacerbation - most likely explanation for fever and increased shortness of breath. Slowly improving with current management -His continue azithromycin and Rocephin -Doxycycline 100 mg by mouth twice a day -Scheduled nebulizers -Supplement oxygen -Physical therapy to help with the weakness Insulin-dependent diabetes mellitus with hyperglycemia - hyperglycemia improved off of glucocorticoid therapy -Continue long-acting insulin -Medium dose sliding scale insulin Stage III chronic kidney disease - creatinine stable and near baseline. Maintenance issues - - DVT prophylaxis - SCD - GI prophylaxis - not indicated - Nutrition - diabetic - Alexander catheter - removed yesterday Disposition - I would anticipate discharge home tomorrow
[2018-12-17] MEDS: Lactobacillus Rhamnosus GG (Probiotic) Cap PO SCH ×2 (15:42→20:54)
[2018-12-17] MEDS: Doxycycline 100 MG Cap PO SCH ×2 (15:42→21:01)
[2018-12-17] MEDS: atorvaSTATin 10 MG Tab PO SCH (20:59)
[2018-12-17] MEDS: Famotidine 20 MG Tab PO SCH (21:01)
[2018-12-17] MEDS: Clopidogrel 75 MG Tab PO SCH (21:01)
[2018-12-17] MEDS: Insulin Glargine,Human Rec. Analog 100 Units/ML 3 ML Pen SUBCUT SCH (21:06)
[2018-12-18] MEDS: Albuterol/Ipratropium 3.0-0.5 MG/3 ML Neb Soln NEB SCH ×3 (07:17→14:58)
[2018-12-18] MEDS: Insulin Lispro 100 Unit/ML 3 ML KwikPen SUBCUT SCH ×2 (08:03→11:45)
[2018-12-18] MEDS: Aspirin 81 MG Tab.Chew PO SCH (09:01)
[2018-12-18] MEDS: Lactobacillus Rhamnosus GG (Probiotic) Cap PO SCH (09:01)
[2018-12-18] MEDS: Nystatin Crm 15 GM Tube TOP SCH (09:02)
[2018-12-18] MEDS: Doxycycline 100 MG Cap PO SCH (09:02)
[2018-12-18] MEDS: Gabapentin 100 MG Cap PO SCH (09:02)
[2018-12-18] MEDS: glipiZIDE 5 MG Tab.ER PO SCH (09:03)
[2018-12-18] MEDS: Allopurinol 100 MG Tab PO SCH (09:03)
[2018-12-18] MEDS: Metoprolol Tartrate 50 MG Tab PO SCH (09:04)
[2018-12-18 10:34] VITALS: BP 135/49
--- NOTE | 2018-12-18 14:04 | PCM.DCSUM1 ---
Discharge Summary - Hospital Course Brief History: Ms. Moreno is an 83-year-old woman who was admitted through the emergency department with hypoxia, cough, and increased shortness of breath secondary to COPD exacerbation with underlying bronchitis. - Discharge Data Discharge Date: 12/18/18 Discharge Disposition: Home, W Home Health Agency 06 Condition: Fair - Discharge Diagnosis/Problem(s) (1) Bronchitis SNOMED Code(s): 67949728 ICD Code: J40 - BRONCHITIS, NOT SPECIFIED ACUTE OR CHRONIC Status: Acute Current Visit: Yes (2) Hypoxia SNOMED Code(s): 948844702 ICD Code: R09.02 - HYPOXEMIA Status: Acute Current Visit: Yes (3) Diabetes mellitus type 2 in obese SNOMED Code(s): 88729744 ICD Code: E11.9 - TYPE 2 DIABETES MELLITUS WITHOUT COMPLICATIONS; E66.9 - OBESITY, UNSPECIFIED Status: Chronic Priority: High Current Visit: No (4) CKD (chronic kidney disease) stage 4, GFR 15-29 ml/min SNOMED Code(s): 011870542 ICD Code: N18.4 - CHRONIC KIDNEY DISEASE, STAGE 4 (SEVERE) Status: Chronic Current Visit: No (5) COPD (chronic obstructive pulmonary disease) SNOMED Code(s): 89823749 ICD Code: J44.9 - CHRONIC OBSTRUCTIVE PULMONARY DISEASE, UNSPECIFIED Status : Chronic Current Visit: No (6) Post-menopausal bleeding SNOMED Code(s): 05020488 ICD Code: N95.0 - POSTMENOPAUSAL BLEEDING Status: Acute Current Visit: Yes - Patient Summary/Data Consults: Consultations 12/15/18 10:15 PT Evaluation and Treatment [CONS] Routine Please Evaluate and Treat. PT Reason for Consult: Strengthening This query below is only for informational purposes and is not editable. Admission Diagnosis/Problem: Shortness of breath Hospital Course: Ms. Moreno is an 83-year-old woman who was admitted through the emergency department with hypoxia and increased shortness of breath secondary to COPD exacerbation with underlying bronchitis. She has a known in long-standing history of oxygen dependent COPD. Prior to admission she developed increased shortness of breath despite supplemental oxygen associated with fever and cough. On evaluation in the emergency department her white blood cell count was normal and chest x-ray showed no obvious infiltrates. She was also felt to have a component of fluid overload with some increase in peripheral edema in the past several days prior to admission. She was started on IV antibiotic therapy with azithromycin and Rocephin, cultures were obtained at the time of admission and remained negative throughout her hospital stay. She was given IV Solu- Medrol as well as IV furosemide in the emergency department. First 24 hours after admission blood sugars were markedly elevated and this was felt to be secondary to the IV corticoid therapy which was discontinued. Following this blood glucose levels did return to more acceptable range. Prior to discharge she was transitioned oral antibiotic therapy with doxycycline 100 mg twice daily and she will be continued on this for an additional 2 days. During the hospital stay she was noted to have significant vaginal bleeding. Pelvic ultrasound was recommended for further evaluation which the patient and family refuse. They feel strongly that the bleeding is hemorrhoidal in nature and are aware that if it is vaginal there could be an undiagnosed uterine malignancy. She will be discharged home with home care, as well as home physical therapy and occupational therapy. Activity will be as tolerated and she will resume her usual diet. Follow-up appointment will be scheduled with Dr. Marin within one week. - Patient Instructions Diet: Diabetic Diet Activity: As Tolerated Other/Special Instructions: Please schedule follow-up appointment with Dr. Marin within one week. Please arrange for home care services with home physical therapy and occupational therapy after discharge. - Discharge Plan *PRESCRIPTION DRUG MONITORING PROGRAM REVIEWED*: Not Applicable *COPY OF PRESCRIPTION DRUG MONITORING REPORT IN PATIENT YASMINE: Not Applicable Prescriptions/Med Rec: Doxycycline [Vibramycin] 100 mg PO BID #4 cap Lactobacillus Rhamnosus GG [Culturelle] 1 cap PO BID #60 cap Home Medications: Home Meds Allopurinol 100 mg PO DAILY 06/06/13 [History] Aspirin [Christ Chewable Aspirin] 81 mg PO DAILY 06/06/13 [History] Clopidogrel Bisulfate [Clopidogrel] 75 mg PO BEDTIME 06/06/13 [History] Metoprolol Tartrate [Lopressor] 100 mg PO BID 06/06/13 [History] Triamcinolone Acetonide [Kenalog 0.1% Crm] 454 gm TOP ASDIRECTED PRN 06/06/13 [ History] atorvaSTATin Calcium [Atorvastatin Calcium] 10 mg PO BEDTIME 06/06/13 [History] glipiZIDE [Glipizide ER] 10 mg PO DAILY 06/06/13 [History] Famotidine 10 mg PO BEDTIME 01/15/15 [History] Insulin Glarg,Human.Rec.Analog [Lantus] 64 unit SUBCUT BEDTIME 01/15/15 [History ] Furosemide [Lasix] 40 mg PO DAILY #30 tablet 01/21/15 [Rx] Cholecalciferol (Vitamin D3) [Vitamin D3] 2,000 unit PO DAILY 09/12/16 [History] [place]-3 Fatty Acids [Fish Oil] 1,000 mg PO DAILY 09/12/16 [History] Gabapentin [Neurontin] 100 mg PO BID 08/17/18 [History] Doxycycline [Vibramycin] 100 mg PO BID #4 cap 12/18/18 [Rx] Lactobacillus Rhamnosus GG [Culturelle] 1 cap PO BID #60 cap 12/18/18 [Rx] Referrals: Gadiel Marin MD [Primary Care Provider] - 12/26/18 1:30 pm (Please arrive 15 minutes early to register for your appointment.) - Discharge Summary/Plan Comment DC Time >30 min.: No - Patient Data Vitals - Most Recent: Last Vital Signs Temp 98.4 F 12/18/18 10:32 Pulse 65 12/18/18 11:15 Resp 18 12/18/18 10:32 BP 135/49 L 12/18/18 10:32 Pulse Ox 96 12/18/18 11:15 Weight - Most Recent: 261 lb 14.546 oz I&O - Last 24 hours: Intake & Output 12/17/18 12/18/18 12/18/18 22:59 06:59 14:59 Intake Total 800 Balance 800 CHAYA Results - Last 24 hrs: Microbiology 12/14/18 17:40 Aerobic Blood Culture - Preliminary Blood - Venous NO GROWTH AFTER 3 DAYS Anaerobic Blood Culture - Preliminary NO GROWTH AFTER 3 DAYS 12/14/18 17:40 Aerobic Blood Culture - Preliminary Blood - Venous - Lab Draw NO GROWTH AFTER 3 DAYS Anaerobic Blood Culture - Preliminary NO GROWTH AFTER 3 DAYS Med Orders - Current: Current Medications Albuterol/Ipratropium (Duoneb 3.0-0.5 Mg/3 Ml) 3 ml NEB QIDRT [facility] Last Admin: 12/18/18 11:14 Dose: 3 ml Allopurinol (Zyloprim) 100 mg PO DAILY [facility] Last Admin: 12/18/18 09:03 Dose: 100 mg Aspirin (Aspirin) 81 mg PO DAILY [facility] Last Admin: 12/18/18 09:01 Dose: 81 mg Atorvastatin Calcium (Lipitor) 10 mg PO BEDTIME [facility] Last Admin: 12/17/18 20:59 Dose: 10 mg Clopidogrel Bisulfate (Plavix) 75 mg PO BEDTIME [facility] Last Admin: 12/17/18 21:01 Dose: 75 mg Doxycycline Hyclate (Vibramycin) 100 mg PO BID [facility] Last Admin: 12/18/18 09:02 Dose: 100 mg Famotidine (Pepcid) 10 mg PO BEDTIME [facility] Last Admin: 12/17/18 21:01 Dose: 10 mg Gabapentin (Neurontin) 100 mg PO BID [facility] Last Admin: 12/18/18 09:02 Dose: 100 mg Glipizide (Glucotrol Xl) 10 mg PO DAILY [facility] Last Admin: 12/18/18 09:03 Dose: 10 mg Insulin Glargine (Lantus Solostar) 64 units SUBCUT BEDTIME [facility] Last Admin: 12/17/18 21:06 Dose: 64 units Insulin Human Lispro (Humalog) 0 unit SUBCUT QIDACANDBED [facility]; Protocol Last Admin: 12/18/18 11:45 Dose: 4 units Lactobacillus Rhamnosus (Culturelle) 1 cap PO BID [facility] Last Admin: 12/18/18 09:01 Dose: 1 cap Metoprolol Tartrate (Lopressor) 100 mg PO BID [facility] Last Admin: 12/18/18 09:04 Dose: 100 mg Nystatin (Nystatin Crm) 0 gm TOP BID [facility] Last Admin: 12/18/18 09:02 Dose: 1 applic Sodium Chloride (Saline Flush) 10 ml FLUSH ASDIRECTED PRN PRN Reason: Keep Vein Open Discontinued Medications Acetaminophen (Tylenol) 650 mg PO NOW ONE Stop: 12/14/18 17:50 Last Admin: 12/14/18 17:58 Dose: 650 mg Albuterol (Proventil Neb Soln) 2.5 mg NEB ONETIME ONE Stop: 12/14/18 18:23 Last Admin: 12/14/18 18:30 Dose: 2.5 mg Albuterol/Ipratropium (Duoneb 3.0-0.5 Mg/3 Ml) 3 ml NEB ONETIME ONE Stop: 12/14/18 18:23 Last Admin: 12/14/18 18:30 Dose: 3 ml Albuterol/Ipratropium (Duoneb 3.0-0.5 Mg/3 Ml) 3 ml NEB Q4H PRN PRN Reason: Shortness of Breath Azithromycin (Zithromax) 500 mg PO Q24H [facility] Last Admin: 12/16/18 22:52 Dose: 500 mg Furosemide (Lasix) 40 mg IVPUSH NOW STA Stop: 12/14/18 21:06 Last Admin: 12/14/18 21:27 Dose: 40 mg Lactated Ringer's (Ringers, Lactated) 1,000 mls @ 500 mls/hr IV ASDIRECTED [facility] Last Admin: 12/14/18 21:27 Dose: 500 mls/hr Ceftriaxone Sodium 1 gm/ (Sodium Chloride) 50 mls @ 100 mls/hr IV Q24H [facility] Last Admin: 12/16/18 22:52 Dose: 100 mls/hr Insulin Human Lispro (Humalog) 5 unit SUBCUT ONETIME ONE Stop: 12/15/18 11:25 Last Admin: 12/15/18 11:40 Dose: 5 units Insulin Human Lispro (Humalog) 0 unit SUBCUT ONETIME [facility] Stop: 12/15/18 21:02 Last Admin: 12/15/18 21:15 Dose: 15 units Methylprednisolone Sodium Succinate (Solu-Medrol) 125 mg IVPUSH ONETIME ONE Stop: 12/14/18 21:13 Last Admin: 12/14/18 21:26 Dose: 125 mg Methylprednisolone Sodium Succinate (Solu-Medrol) 125 mg IVPUSH Q8H [facility] Last Admin: 12/15/18 06:01 Dose: 125 mg Methylprednisolone Sodium Succinate (Solu-Medrol) 125 mg IVPUSH Q8H [facility] Methylprednisolone Sodium Succinate (Solu-Medrol) 62.5 mg IVPUSH Q8H [facility] - Exam Quality Assessment: Reports: Supplemental Oxygen, DVT Prophylaxis General: Reports: Alert, Oriented, Cooperative, No Acute Distress Lungs: Reports: Decreased Breath Sounds. Denies: Rales, Rhonchi, Rub, Wheezing Cardiovascular: Reports: Regular Rate, Regular Rhythm, No Murmurs GI/Abdominal Exam: Soft, Non-Tender, No Organomegaly, No Distention Extremities: Non-Tender, No Pedal Edema
== END 2018-12-18 17:00 | disposition home health service (06) | DRG 191 ==
LOC: JP.ED 16:44 → JP.MS 21:56
PROVIDERS: ADMIT Family Medicine; ATTEND Hospitalist
DX: J44.0 Chronic obstructive pulmonary disease with (acute) lower respiratory infection (principal); I69.954 Hemiplegia and hemiparesis following unspecified cerebrovascular disease affecting left non-dominant side; Z66 Do not resuscitate; J20.9 Acute bronchitis, unspecified; J44.1 Chronic obstructive pulmonary disease with (acute) exacerbation; I12.9 Hypertensive chronic kidney disease with stage 1 through stage 4 chronic kidney disease, or unspecified chronic kidney disease; E11.22 Type 2 diabetes mellitus with diabetic chronic kidney disease; E11.65 Type 2 diabetes mellitus with hyperglycemia; N18.3 Chronic kidney disease, stage 3 (moderate); R60.9 Edema, unspecified; Z79.4 Long term (current) use of insulin; R53.1 Weakness; R06.02 Shortness of breath; R09.02 Hypoxemia; Z99.81 Dependence on supplemental oxygen; E87.70 Fluid overload, unspecified; H54.7 Unspecified visual loss; E78.5 Hyperlipidemia, unspecified; K59.09 Other constipation; K21.9 Gastro-esophageal reflux disease without esophagitis; N95.0 Postmenopausal bleeding; Z79.82 Long term (current) use of aspirin; Z79.52 Long term (current) use of systemic steroids; Z79.899 Other long term (current) drug therapy
CPT/HCPCS: 36415; 71045; 80053; 81001; 83605; 83880; 84484; 85025; 86140; 87040 ×2; 87086; 93005; 94640; 96361; 96374; 96375; 99285; A9270; J1940; J2930; J7120 ×2; 80048; 82962; 85027; 97110-GP; 97162-GP; 97530-GP; 97535-GP; J0696; J1815; J1815-GY; J7050; J7620-GY